=== PATIENT | female | born 1980 ===

== ENCOUNTER 2017-01-03 15:22 | Emergency (ER) | payer MEDICARE, MEDICAID ==
[2017-01-03 15:23] VITALS: BMI 10.8
[2017-01-03 15:29] VITALS: BP 110/78; PULSE 98; RESP 18; TEMP 97.5; O2SAT 100
--- NOTE | 2017-01-03 15:48 | C.PDOC ---
History Of Present Illness 36 y/o F c PMHx gastric ulcer p/w dyspepsia since last night. Patient states that she recently underwent endoscopy for her symptoms and was found to have a gastric ulcer. She has been on omeprazole. She states that she had [place] food last night and it made her have worsening symptoms. She states that she needs to know what she can and can not eat and that it must be laid out for her because she has bipolar disorder. She denies fever, vomiting. She has yet to follow up with GI for H. pylori results. Time Seen by Provider: 01/03/17 15:42 Chief Complaint (Nursing): Abdominal Pain Past Medical History Vital Signs: Last Vital Signs Temp 97.5 F L 01/03/17 15:26 Pulse 98 H 01/03/17 15:26 Resp 18 01/03/17 15:26 BP 110/78 01/03/17 15:26 Pulse Ox 100 01/03/17 15:58 - Medical History PMH: Anxiety, Asthma, Bipolar Disorder, Depression, Gastrointestinal Ulcer, HTN , Hypothyroidism, Migraine, Schizophrenia, Seizures - [facility] Procedures INJECT/INFUSE ELECTROLYT (11/24/12) INJECT/INFUSE NEC (03/13/13) NEBULIZER THERAPY (11/30/12) Family History: States: Unknown Family Hx - Social History Hx Tobacco Use: Yes Hx Alcohol Use: No Hx Substance Use: No - Immunization History Hx Tetanus Toxoid Vaccination: No Hx Influenza Vaccination: No Hx Pneumococcal Vaccination: No Review Of Systems Except As Marked, All Systems Reviewed And Found Negative. Constitutional: Negative for: Fever Cardiovascular: Negative for: Chest Pain Physical Exam - Physical Exam Additional Physical Exam Comments: Constitutional: No acute distress. Head: Normocephalic. Atraumatic. Eyes: PERRL. ENT: Moist mucous membranes. Neck: Supple. Cardiovascular: Regular rate. Radial pulses 2+ bilaterally. Chest: No tenderness. Respiratory: Clear to auscultation bilaterally. GI: Soft. Nontender. Nondistended. Back: No CVA tenderness. Musculoskeletal: No tenderness or swelling of extremities. Skin: No rash. Neurologic: Alert, no focal deficit. ED Course And Treatment O2 Sat by Pulse Oximetry: 100 Medical Decision Making Medical Decision Making: Discussed appropriate diet with patient and gave information on diet. Encouraged f/u with GI to find out if H pylori positive. Also informed patient that some [employer] have per diem/systems requirements planner on staff and that perhaps she can consult with them while shopping for groceries. Disposition - Disposition Disposition: HOME/ ROUTINE Disposition Time: 15:56 Condition: STABLE Instructions: Diet for Ulcers and Gastritis (ED) Forms: [facility] (Kiswahili) - Clinical Impression Clinical Impression: Gastric ulcer
== END 2017-01-03 16:05 | disposition home or self-care (01) ==
LOC: C.ER 15:22
DX: K25.9 Gastric ulcer, unspecified as acute or chronic, without hemorrhage or perforation (principal)

== ENCOUNTER 2017-03-11 13:45 | Emergency (ER) | payer MEDICARE, MEDICAID ==
[2017-03-11] MEDS ORDERED: Naproxen 550 mg Tab PO STA (14:12)
[2017-03-11 14:13] VITALS: BMI 32.2
[2017-03-11 14:14] VITALS: BP 124/72; RESP 18; TEMP 98.1
--- NOTE | 2017-03-11 14:14 | C.PDOC ---
History Of Present Illness Patient presents to ED c/o sore throat x approx 3 weeks. She states she was already given several antibiotics as well as viscous lidocaine. Patient also states she was given an ENT referral, but she lost it. She denies fever, SOB, cough, rash. Time Seen by Provider: 03/11/17 13:55 Chief Complaint (Nursing): ENT Problem History Per: Patient History/Exam Limitations: None Onset/Duration Of Symptoms: Persistent Current Symptoms Are (Timing): Still Present Symptoms Have Been: Continuous Severity: Mild Past Medical History Reviewed: Historical Data, Nursing Documentation, Vital Signs Vital Signs: Last Vital Signs Temp 98.1 F 03/11/17 14:11 Pulse 85 03/11/17 14:31 Resp 18 03/11/17 14:31 BP 124/72 03/11/17 14:11 Pulse Ox 98 03/11/17 14:31 - Medical History PMH: Anxiety, Asthma, Bipolar Disorder, Depression, Gastrointestinal Ulcer, HTN , Hypothyroidism, Migraine, Schizophrenia, Seizures - [facility] Procedures INJECT/INFUSE ELECTROLYT (11/24/12) INJECT/INFUSE NEC (03/13/13) NEBULIZER THERAPY (11/30/12) Family History: States: No Known Family Hx - Social History Hx Tobacco Use: Yes Hx Alcohol Use: No Hx Substance Use: No - Immunization History Hx Tetanus Toxoid Vaccination: No Hx Influenza Vaccination: No Hx Pneumococcal Vaccination: No Review Of Systems Except As Marked, All Systems Reviewed And Found Negative. Constitutional: Negative for: Fever, Chills ENT: Positive for: Throat Pain. Negative for: Ear Pain, Nose Congestion Cardiovascular: Negative for: Chest Pain Respiratory: Negative for: Cough, Shortness of Breath Musculoskeletal: Negative for: Neck Pain Skin: Negative for: Rash Physical Exam - Physical Exam Appears: Well, Non-toxic, No Acute Distress Skin: Warm, Dry, No Rash Ear(s): Bilateral: Normal Nose: Normal Oral Mucosa: Moist Throat: Normal, No Erythema, No Exudate, No Drooling Neck: Normal, Normal ROM, Supple Cardiovascular: Rhythm Regular Respiratory: Normal Breath Sounds, No Rales, No Rhonchi, No Wheezing Neurological/Psych: Oriented x3 ED Course And Treatment O2 Sat by Pulse Oximetry: 98 (RA) Pulse Ox Interpretation: Normal Progress Note: Patient given PO naprosyn in ED, and Rx for same. Patient given follow up info for Dr. Cook, and she was instructed to follow up with him within 1 week. She understands she should return to ED if symptoms worsen. Disposition Counseled Patient/Family Regarding: Diagnosis, Need For Followup, Rx Given - Disposition Referrals: Kaylan Hansen MD [Primary Care Provider] - Angel Cook MD [Staff Provider] - Disposition: HOME/ ROUTINE Disposition Time: 14:15 Condition: STABLE Additional Instructions: FOLLOW UP WITH ENT WITHIN 1 WEEK USE MEDICATION NEEDED FOR PAIN RETURN TO ER IF SYMPTOMS WORSEN Prescriptions: Naproxen 375 mg PO BID PRN #20 tablet PRN Reason: pain Forms: [facility] (Maltese), General Discharge Instructions Print Language: SLOVENIAN - Clinical Impression Clinical Impression: Sore throat
[2017-03-11] MEDS ORDERED: Naproxen 550 mg Tab PO ONE (14:20)
[2017-03-11 14:34] VITALS: PULSE 85; O2SAT 98
== END 2017-03-11 14:40 | disposition home or self-care (01) ==
LOC: C.ER 13:45 → SUPCPDRO 13:45 → C.ER 14:40
DX: J02.9 Acute pharyngitis, unspecified (principal)

== ENCOUNTER 2017-03-19 16:28 | Emergency (ER) | payer MEDICARE, MEDICAID ==
[2017-03-19 16:28] VITALS: BMI 10.8
[2017-03-19 16:38] VITALS: TEMP 97.9; O2SAT 100
--- NOTE | 2017-03-19 17:28 | C.PDOC ---
History Of Present Illness Patient is a 37 y/o female who presents to the ED with a complaint of CP since 1 day ago. Patient reports pain is able to be digitally reproduced on sternum. Patient has had many prior evaluations for CP in ED. No other physical complaints at this time. Time Seen by Provider: 03/19/17 17:22 Chief Complaint (Nursing): Chest Pain History Per: Patient History/Exam Limitations: no limitations Onset/Duration Of Symptoms: Days (1 day ago) Current Symptoms Are (Timing): Still Present Recent travel outside of the [place]: No Past Medical History Reviewed: Historical Data, Nursing Documentation, Vital Signs Vital Signs: Last Vital Signs Temp 97.9 F 03/19/17 16:34 Pulse 83 03/19/17 17:33 Resp 18 03/19/17 17:33 BP 108/67 03/19/17 17:33 Pulse Ox 100 03/19/17 17:33 - Medical History PMH: Anxiety, Asthma, Bipolar Disorder, Depression, Gastrointestinal Ulcer, HTN , Hypothyroidism, Migraine, Schizophrenia, Seizures Surgical History: No Surg Hx - [facility] Procedures INJECT/INFUSE ELECTROLYT (11/24/12) INJECT/INFUSE NEC (03/13/13) NEBULIZER THERAPY (11/30/12) Family History: States: Unknown Family Hx - Social History Hx Tobacco Use: Yes Hx Alcohol Use: No Hx Substance Use: No - Immunization History Hx Tetanus Toxoid Vaccination: No Hx Influenza Vaccination: Yes Hx Pneumococcal Vaccination: No Review Of Systems Cardiovascular: Positive for: Chest Pain Physical Exam - Physical Exam Appears: Non-toxic, Combative (argumentative; yelling), Other (bizzare) Skin: Normal Color, Warm, Dry Head: Atraumatic, Normacephalic Oral Mucosa: Moist ED Course And Treatment ECG: Interpreted By Nv ECG Rhythm: Sinus Rhythm ECG Interpretation: Normal Rate From EC O2 Sat by Pulse Oximetry: 100 Pulse Ox Interpretation: Normal Medical Decision Making Medical Decision Making: digitally positionally reproducable chest discomfort b/l parasternal anxious, yelling, hystrionia, c/w h/o Bipolar normal EKg NSAIDS/Ice therapy educated. Disposition Doctor Will See Patient In The: Office Counseled Patient/Family Regarding: Studies Performed, Diagnosis - Disposition Referrals: Marni Hansen MD [Medical Doctor] - Disposition: HOME/ ROUTINE Disposition Time: 17:28 Condition: GOOD Additional Instructions: continue motrin or tylenol for chest wall discomfort. ice packs to chest wall 1/2 hour per hour as needed no heavy lifting for 1 week Follow-up with your PMD as needed. Instructions: Costochondritis (ED) Forms: [facility] (Chinese) - Clinical Impression Clinical Impression: Anxiety disorder, Chest discomfort - Scribe Statement The provider has reviewed the documentation as recorded by the Scribe Gloria Bray All medical record entries made by the Scribe were at my direction and personally dictated by me. I have reviewed the chart and agree that the record accurately reflects my personal performance of the history, physical exam, medical decision making, and the department course for this patient. I have also personally directed, reviewed, and agree with the discharge instructions and disposition.
[2017-03-19 17:34] VITALS: BP 108/67; PULSE 83; RESP 18
--- NOTE | 2017-03-20 19:13 | CARD ---
APPROVED REPORT EKG Measurement Heart [id number] <Conclusion> Normal sinus rhythm Low voltage QRS Borderline ECG
== END 2017-03-19 17:49 | disposition home or self-care (01) ==
LOC: C.ER 16:28
DX: F41.9 Anxiety disorder, unspecified (principal); R07.89 Other chest pain; I10 Essential (primary) hypertension; Z87.891 Personal history of nicotine dependence

== ENCOUNTER 2017-03-28 16:30 | Emergency (ER) | payer MEDICARE, MEDICAID ==
[2017-03-28 16:30] VITALS: BMI 10.8
[2017-03-28 16:37] VITALS: TEMP 98
--- NOTE | 2017-03-28 17:00 | C.PDOC ---
History Of Present Illness 37 y/o female c/o dental pain for the past few weeks. Patient has an appointment to see her dentist and reports misplacing her meds. Denies fever, chills, nausea, or vomiting. No trauma to the mouth area or facial numbness. Time Seen by Provider: 03/28/17 16:38 Chief Complaint (Nursing): Dental Pain History Per: Patient History/Exam Limitations: no limitations Onset/Duration Of Symptoms: Days Current Symptoms Are (Timing): Still Present Severity: Mild Quality: Positive for: "Pain" Recent travel outside of the [place]: No Additional History Per: Patient Past Medical History Reviewed: Historical Data, Nursing Documentation, Vital Signs Vital Signs: Last Vital Signs Temp 98.0 F 03/28/17 16:35 Pulse 102 H 03/28/17 16:35 Resp 16 03/28/17 16:35 BP 106/70 03/28/17 16:35 Pulse Ox 100 03/28/17 17:07 - Medical History PMH: Anxiety, Asthma, Bipolar Disorder, Depression, Gastrointestinal Ulcer, HTN , Hypothyroidism, Migraine, Schizophrenia, Seizures - [facility] Procedures INJECT/INFUSE ELECTROLYT (11/24/12) INJECT/INFUSE NEC (03/13/13) NEBULIZER THERAPY (11/30/12) Family History: States: Unknown Family Hx - Social History Hx Tobacco Use: Yes Hx Alcohol Use: No Hx Substance Use: No - Immunization History Hx Tetanus Toxoid Vaccination: No Hx Influenza Vaccination: Yes Hx Pneumococcal Vaccination: No Review Of Systems Except As Marked, All Systems Reviewed And Found Negative. Constitutional: Negative for: Fever, Chills, Other (Trauma) ENT: Positive for: Mouth Pain (Dental pain) Gastrointestinal: Negative for: Nausea, Vomiting Neurological: Negative for: Numbness Physical Exam - Physical Exam Appears: Non-toxic, No Acute Distress Skin: Warm, Dry Head: Atraumatic, Normacephalic Oral Mucosa: Moist Teeth: Caries (Dental caries to the left upper molar), No Loose, No Avulsed Gingiva: No Erythema, No Bleeding, No Abscess Throat: Normal, No Erythema Neurological/Psych: Oriented x3 ED Course And Treatment O2 Sat by Pulse Oximetry: 100 (RA) Pulse Ox Interpretation: Normal Medical Decision Making Medical Decision Making: Plans: * Cleocin On reassessment, patient is resting comfortably, and is in no acute distress. Patient was instructed to follow up with physician/clinic in 1-2 days for further evaluation. Disposition - Disposition Referrals: [facility] [Outside] [facility] [Outside] Disposition: HOME/ ROUTINE Disposition Time: 17:00 Condition: STABLE Additional Instructions: please see dentist. return to er with worsening symptoms or concerns. Prescriptions: Clindamycin [Cleocin] 300 mg PO Q8 #21 cap Instructions: Dental Caries (ED), Toothache (ED) Forms: [facility] (Sami) - Clinical Impression Clinical Impression: Dental caries - Scribe Statement The provider has reviewed the documentation as recorded by the Scribe Jailene sapp All medical record entries made by the Scribe were at my direction and personally dictated by me. I have reviewed the chart and agree that the record accurately reflects my personal performance of the history, physical exam, medical decision making, and the department course for this patient. I have also personally directed, reviewed, and agree with the discharge instructions and disposition.
[2017-03-28 17:22] VITALS: BP 104/62; PULSE 90; RESP 20; O2SAT 98
== END 2017-03-28 17:31 | disposition home or self-care (01) ==
LOC: C.ER 16:30
DX: K02.9 Dental caries, unspecified (principal)

== ENCOUNTER 2017-05-17 16:59 | Emergency (ER) | payer MEDICARE, MEDICAID ==
[2017-05-17 17:00] VITALS: BMI 10.8
[2017-05-17 17:10] VITALS: BP 106/74; PULSE 99; RESP 18; TEMP 97.6; O2SAT 99
--- NOTE | 2017-05-17 17:49 | C.PDOC ---
History Of Present Illness 37 year old female with a Hx of bipolar disorder and migraines presents to the ER with a complaint of left lower abdominal discomfort for the past week. Patient has a recent Hx of kidney stones and a questionable UTI, she states her PMD gave her something of for bladder spasms but did not start her on any antibiotics. Patient also notes having cough and URI symptoms but denies fever, chills, neck pain, current headache, or chest pain. Time Seen by Provider: 05/17/17 17:11 Chief Complaint (Nursing): Abdominal Pain History Per: Patient History/Exam Limitations: no limitations Onset/Duration Of Symptoms: Days Current Symptoms Are (Timing): Still Present Location Of Pain/Discomfort: LLQ Radiation Of Pain To:: None Quality Of Discomfort: Unable To Describe Associated Symptoms: denies: Fever, Chills, Chest Pain, Other (Cough, headache) Exacerbating Factors: None Alleviating Factors: None Recent travel outside of the [place]: No Past Medical History Reviewed: Historical Data, Nursing Documentation, Vital Signs Vital Signs: Last Vital Signs Temp 97.6 F 05/17/17 17:08 Pulse 99 H 05/17/17 17:08 Resp 18 05/17/17 17:08 BP 106/74 05/17/17 17:08 Pulse Ox 99 05/17/17 18:13 - Medical History PMH: Anxiety, Asthma, Bipolar Disorder, COPD, Depression, Gastrointestinal Ulcer , HTN, Hypothyroidism, Migraine, Schizophrenia, Seizures - [facility] Procedures INJECT/INFUSE ELECTROLYT (11/24/12) INJECT/INFUSE NEC (03/13/13) NEBULIZER THERAPY (11/30/12) Family History: States: Unknown Family Hx - Social History Hx Tobacco Use: Yes Hx Alcohol Use: No Hx Substance Use: No - Immunization History Hx Tetanus Toxoid Vaccination: No Hx Influenza Vaccination: Yes Hx Pneumococcal Vaccination: No Review Of Systems Constitutional: Negative for: Fever, Chills ENT: Positive for: Nose Discharge, Nose Congestion Cardiovascular: Negative for: Chest Pain Respiratory: Positive for: Cough Gastrointestinal: Positive for: Abdominal Pain Musculoskeletal: Negative for: Neck Pain Neurological: Negative for: Headache Physical Exam - Physical Exam Appears: Non-toxic, No Acute Distress Skin: Normal Color, Warm, Dry Head: Atraumatic, Normacephalic Eye(s): bilateral: Normal Inspection Oral Mucosa: Moist Neck: Normal, Supple Chest: Symmetrical, No Tenderness Cardiovascular: Rhythm Regular Respiratory: Normal Breath Sounds, No Rales, No Rhonchi, No Wheezing Gastrointestinal/Abdominal: Soft, No Tenderness, No Distention Back: No CVA Tenderness Neurological/Psych: Oriented x3, Normal Speech ED Course And Treatment O2 Sat by Pulse Oximetry: 99 (Room air) Pulse Ox Interpretation: Normal Medical Decision Making Medical Decision Making: Plan: Rue out UTI vs hematuria. Abdominal x-ray ordered. Disposition Counseled Patient/Family Regarding: Studies Performed, Diagnosis, Need For Followup, Rx Given - Disposition Disposition: HOME/ ROUTINE Disposition Time: 18:23 Condition: STABLE Prescriptions: Peg Electrolyte Lavage Solut [Golytely] 4,000 ml PO ONCE #1 bottle Phosphate Enema [Fleet Enema 135 Ml] 135 ml RC DAILY #2 nma Forms: [facility] (Wolof), General Discharge Instructions - POA Present On Arrival: None - Clinical Impression Clinical Impression: Constipation - Scribe Statement The provider has reviewed the documentation as recorded by the Scribsathya Fam All medical record entries made by the Pradipibsathya were at my direction and personally dictated by me. I have reviewed the chart and agree that the record accurately reflects my personal performance of the history, physical exam, medical decision making, and the department course for this patient. I have also personally directed, reviewed, and agree with the discharge instructions and disposition.
[2017-05-17 17:56] LABS: HCG,QUALITATIVE URINE NEGATIVE (NEGATIVE)
[2017-05-17 18:05] LABS: SQUAMOUS EPITHIAL 7 /hpf (0-5); URINE BACTERIA RARE (<OCC); URINE BILIRUBIN NEGATIVE (NEGATIVE); URINE BLOOD NEGATIVE (NEGATIVE); URINE CLARITY Hazy (Clear); URINE GLUCOSE (UA) NORMAL (Normal); URINE LEUKOCYTE ESTERASE NEG Leu/uL (Negative); URINE NITRATE NEGATIVE (NEGATIVE); URINE PROTEIN NEGATIVE (NEGATIVE); URINE UROBILINOGEN NORMAL mg/dL (0.2-1.0)
[2017-05-17 18:06] LABS: URINE COLOR GREEN (YELLOW)
--- NOTE | 2017-05-17 18:17 | RAD ---
HISTORY: abd pain COMPARISON: Comparison is made with the previous CT of the abdomen dated 12/13/2016 FINDINGS: BOWEL: Mild constipation is noted. No evidence of bowel obstruction or free air. BONES: Normal. OTHER FINDINGS: None. IMPRESSION: [id number] constipation.
== END 2017-05-17 18:40 | disposition home or self-care (01) ==
LOC: C.ER 16:59
DX: K59.00 Constipation, unspecified (principal)

== ENCOUNTER 2017-07-28 16:14 | Emergency (ER) | payer MEDICARE, MEDICAID ==
[2017-07-28 16:14] VITALS: BMI 10.8
[2017-07-28 16:21] VITALS: RESP 18
[2017-07-28] MEDS ORDERED: Lactated Ringer's 1,000 ML IVB STA (17:01)
[2017-07-28 17:19] LABS: BASO % 0.3 % (0.0-2.0); EOS # 0.2 K/uL (0.0-0.7); EOS % 2.1 % (0.0-4.0); HEMOGLOBIN 14.9 g/dL (11.0-16.0); LYMPH % 27.1 % (20.0-40.0); MEAN CELL VOLUME 99.3 fL (81.0-99.0); MEAN CORPUSCULAR HEMOGLOBIN 33.2 pg (27.0-31.0); MEAN CORPUSCULAR HGB CONC 33.4 g/dL (33.0-37.0); MEAN PLATELET VOLUME 8.7 fL (7.2-11.7); MONO # 0.6 K/uL (0.0-0.8); MONO % 5.6 % (0.0-10.0); NEUT # 7.1 K/uL (1.8-7.0); NEUT % 64.9 % (50.0-75.0); NRBC % 0.1 % (0.0-2.0); RBC 4.47 Mil/uL (3.80-5.20); RED CELL DISTRIBUTION WIDTH 13.2 % (11.5-14.5)
[2017-07-28] MEDS ORDERED: Lactated Ringer's 1,000 ML ONE (17:28)
[2017-07-28 17:29] LABS: HCG,QUALITATIVE URINE NEGATIVE (NEGATIVE)
[2017-07-28 17:32] LABS: ALB/GLOB RATIO 1.2 (1.0-2.1); ALBUMIN 4.1 g/dL (3.5-5.0); ALT/SGPT 25 U/L (9-52); AST/SGOT 22 U/L (14-36); BLOOD UREA NITROGEN 15 mg/dL (7-17); CALCIUM 8.5 mg/dl (8.6-10.4); GFR AFRICAN-AMERICAN > 60; GFR NON-AFRICAN AMERICAN > 60; LIPASE 152 U/L (23-300); SQUAMOUS EPITHIAL 1 /hpf (0-5); URINE AMORPHOUS SEDIMENT FEW /ul (<OCC); URINE BACTERIA RARE (<OCC); URINE BILIRUBIN NEGATIVE (NEGATIVE); URINE BLOOD NEGATIVE (NEGATIVE); URINE CLARITY Hazy (Clear); URINE COLOR Yellow (YELLOW); URINE GLUCOSE (UA) NORMAL (Normal); URINE LEUKOCYTE ESTERASE NEG Leu/uL (Negative); URINE PROTEIN NEGATIVE (NEGATIVE); URINE UROBILINOGEN NORMAL mg/dL (0.2-1.0)
--- NOTE | 2017-07-28 20:11 | CT ---
EXAM: CT Abdomen and Pelvis Without Intravenous Contrast EXAM DATE/TIME: Exam ordered 07/28/2017 5:54 PM CLINICAL HISTORY: 37 years old, female; Pain; Abdominal pain; Flank; Left lower quadrant (llq); Additional info: Llq pain, urinary symptoms TECHNIQUE: Axial computed tomography images of the abdomen and pelvis without intravenous contrast. All CT scans at this facility use one or more dose reduction techniques, viz.: automated exposure control; ma/kV adjustment per patient size (including targeted exams where dose is matched to indication; i.e. head); or iterative reconstruction technique. Coronal and sagittal reformatted images were created and reviewed. COMPARISON: CT - ABD PELVIS IV CONTRAST ONLY 2015-12-14 15:47 FINDINGS: Lower thorax: No acute findings. ABDOMEN: Liver: Unremarkable. Gallbladder and bile ducts: Unremarkable. No calcified stones. No ductal dilation. Pancreas: Unremarkable. No ductal dilation. Spleen: Unremarkable. No splenomegaly. Adrenals: Unremarkable. No mass. Kidneys and ureters: A 2 mm calcification is seen in the lower pole of the right kidney. No hydronephrosis. Stomach and bowel: Unremarkable. No obstruction. No mucosal thickening. Appendix: No findings to suggest acute appendicitis. PELVIS: Bladder: Unremarkable. No stones. Reproductive: Unremarkable as visualized. ABDOMEN and PELVIS: Intraperitoneal space: Unremarkable. No free air. No significant fluid collection. Bones/joints: No acute fracture. No dislocation. Soft tissues: Unremarkable. Vasculature: Unremarkable. No abdominal aortic aneurysm. Lymph nodes: Unremarkable. No enlarged lymph nodes. IMPRESSION: 1. 2 mm nonobstructing calcification in the lower pole of the right kidney. There no calcifications noted in the left kidney or ureter. No bladder calcification seen. No hydronephrosis in either kidney.
--- NOTE | 2017-07-28 20:19 | C.PDOC ---
Time Seen by Provider: 07/28/17 16:44 Chief Complaint (Nursing): Abdominal Pain History Per: Patient Onset/Duration Of Symptoms: Days (about 1 month), Waxing/Waning Current Symptoms Are (Timing): Still Present Severity: Moderate Location Of Pain/Discomfort: LLQ Associated Symptoms: Nausea, Constipation (?), Urinary Symptoms Alleviating Factors: None Additional History Per: Prior Records Abnormal Vaginal Bleeding: No Past Medical History Reviewed: Historical Data, Nursing Documentation, Vital Signs Vital Signs: Last Vital Signs Temp 97.3 F L 07/28/17 16:15 Pulse 116 H 07/28/17 16:15 Resp 18 07/28/17 16:15 BP 111/75 07/28/17 16:15 Pulse Ox 99 07/28/17 16:15 - Medical History PMH: Anxiety, Asthma, Bipolar Disorder, COPD, Depression, Gastrointestinal Ulcer , HTN, Hypothyroidism, Migraine, Schizophrenia, Seizures - [facility] Procedures INJECT/INFUSE ELECTROLYT (11/24/12) INJECT/INFUSE NEC (03/13/13) NEBULIZER THERAPY (11/30/12) Family History: States: Unknown Family Hx - Social History Hx Tobacco Use: Yes Hx Alcohol Use: No Hx Substance Use: No - Immunization History Hx Tetanus Toxoid Vaccination: No Hx Influenza Vaccination: Yes Hx Pneumococcal Vaccination: No Review Of Systems Except As Marked, All Systems Reviewed And Found Negative. Constitutional: Negative for: Fever, Weakness Cardiovascular: Negative for: Chest Pain Respiratory: Negative for: Shortness of Breath Gastrointestinal: Positive for: Abdominal Pain. Negative for: Diarrhea Genitourinary: Positive for: Dysuria. Negative for: Vaginal Discharge Musculoskeletal: Negative for: Neck Pain, Back Pain Skin: Negative for: Rash Neurological: Negative for: Weakness, Numbness Physical Exam - Physical Exam Appears: Non-toxic, No Acute Distress Skin: Normal Color, Warm, Dry Head: Atraumatic, Normacephalic Eye(s): bilateral: PERRL, EOMI Neck: Normal ROM, Supple Cardiovascular: Rhythm Regular Respiratory: Normal Breath Sounds, No Accessory Muscle Use Gastrointestinal/Abdominal: Soft, Tenderness (LLQ), No Guarding, No Rebound Back: No CVA Tenderness Pelvic: Normal Speculum Exam, No Vaginal Bleeding, No Vaginal Discharge, No Cervical Motion Tenderness, No Adnexal Tenderness Extremity: Normal ROM Neurological/Psych: Oriented x3, Normal Motor, Normal Sensation ED Course And Treatment - Laboratory Results Result Diagrams: 07/28/17 17:15 07/28/17 17:15 Lab Interpretation: No Acute Changes Urine POC: Negative O2 Sat by Pulse Oximetry: 99 Pulse Ox Interpretation: Normal - CT Scan/US CT abd/pelv Other Rad Studies (CT/US): Read By Radiologist, Radiology Report Reviewed CT/US Interpretation: IMPRESSION: 1. 2 mm nonobstructing calcification in the lower pole of the right kidney. There no calcifications noted in the left kidney or ureter. No bladder. calcification seen. No hydronephrosis in either kidney. Progress - Interventions Interventions:: Observation, Intravenous fluid - Medications Administered Intravenous: H-2 edwige, NSAID - Data Reviewed Data Reviewed: Lab, Diagnostic imaging, Old records - Patient Status Patient status: Mostly improved - Continuity of Care Discussed patient case with:: Patient, ED Nurse - Patient Plan Patient Plan: Discharge, F/U with PCP Disposition Counseled Patient/Family Regarding: Studies Performed, Diagnosis, Need For Followup, Rx Given - Disposition Disposition: HOME/ ROUTINE Disposition Time: 20:21 Condition: IMPROVED Additional Instructions: Drink plenty of fluids. Follow up with your doctor for further evaluation and treatment. Return to the ER if you develop fever, vomiting, vaginal discharge, worsening of symptoms or if you have any other concerns. Prescriptions: Polyethylene Glycol 3350 [Miralax] 17 gm PO DAILY #7 packet Instructions: Constipation, Adult (DC) Forms: [facility] (Belarusian), General Discharge Instructions - Clinical Impression Clinical Impression: Abdominal pain
[2017-07-28 20:37] VITALS: BP 126/69; PULSE 68; TEMP 98; O2SAT 100
== END 2017-07-28 20:37 | disposition home or self-care (01) ==
LOC: C.ER 16:14
DX: R10.32 Left lower quadrant pain (principal); F20.9 Schizophrenia, unspecified; I10 Essential (primary) hypertension; E03.9 Hypothyroidism, unspecified; Z72.0 Tobacco use
CPT/HCPCS: 74176; 80053; 81001; 83690; 84703; 85025; 87086; 87491; 87591; 96374; 96375; 99284; J1885; J7120

== ENCOUNTER 2017-10-11 16:59 | Emergency (ER) | payer MEDICARE, MEDICAID ==
[2017-10-11 16:59] VITALS: BMI 31.9
[2017-10-11] MEDS ORDERED: Sodium Chloride 0.9% 1,000 ML IV ONE (17:22)
--- NOTE | 2017-10-11 17:27 | C.PDOC ---
History Of Present Illness 11-geng[age]-map female with PMHx of bipolar disorder, schizophrenia, anxiety, epilepsy and herniated disc presents to ED with complaints of headache, chest pain and congestion that began yesterday. Patient states she is "feeling dehydrated." Patient has had multiple ER visits. Denies injury, abdominal pain, vomiting, diarrhea, or urinary symptoms. Time Seen by Provider: 10/11/17 17:07 Chief Complaint (Nursing): Chest Pain History Per: Patient History/Exam Limitations: no limitations Onset/Duration Of Symptoms: Days (1) Current Symptoms Are (Timing): Still Present Associated Symptoms: denies: Nausea, Dyspnea, Diaphoresis Modifying Factors: None Exacerbating Factors: None Alleviating Factors: None Recent travel outside of the [place]: No Past Medical History Reviewed: Historical Data, Nursing Documentation, Vital Signs - Medical History PMH: Anxiety, Asthma, Bipolar Disorder, COPD, Depression, Gastrointestinal Ulcer , Hypothyroidism, Migraine, Schizophrenia, Seizures - [facility] Procedures INJECT/INFUSE ELECTROLYT (11/24/12) INJECT/INFUSE NEC (03/13/13) NEBULIZER THERAPY (11/30/12) Family History: States: Unknown Family Hx - Social History Hx Tobacco Use: Yes Hx Alcohol Use: No Hx Substance Use: No - Immunization History Hx Tetanus Toxoid Vaccination: No Hx Influenza Vaccination: Yes Hx Pneumococcal Vaccination: No Review Of Systems Constitutional: Negative for: Fever, Chills ENT: Positive for: Nose Congestion Cardiovascular: Positive for: Chest Pain Gastrointestinal: Negative for: Nausea, Vomiting, Abdominal Pain, Diarrhea Genitourinary: Negative for: Dysuria Skin: Negative for: Rash Neurological: Positive for: Headache. Negative for: Weakness, Numbness Psych: Negative for: Suicidal ideation Physical Exam - Physical Exam Appears: Non-toxic, No Acute Distress Skin: Warm, Dry Head: Atraumatic, Normacephalic Eye(s): bilateral: Normal Inspection, PERRL, EOMI Oral Mucosa: Moist Throat: Erythema (Mild), No Exudate, No Drooling Neck: Supple Chest: Symmetrical, No Tenderness Cardiovascular: Rhythm Regular, No Murmur Respiratory: Normal Breath Sounds, No Decreased Breath Sounds, No Rales, No Rhonchi, No Wheezing Gastrointestinal/Abdominal: Soft, No Tenderness, No Distention Extremity: Normal ROM, No Pedal Edema Extremity: Bilateral: Normal Color And Temperature, Normal ROM Neurological/Psych: Oriented x3, Normal Speech, Normal Cognition Gait: Steady ED Course And Treatment - Laboratory Results Result Diagrams: 10/11/17 17:35 10/11/17 17:35 - Other Rad CXR X-Ray: Viewed By Me, Read By Radiologist Interpretation: PROCEDURE: CHEST RADIOGRAPH, 1 VIEW. HISTORY: SOB. COMPARISON: Chest radiographs 01/20/2017. FINDINGS: LUNGS: Clear. PLEURA: No pneumothorax or pleural fluid seen. CARDIOVASCULAR: Normal. OSSEOUS STRUCTURES: No significant abnormalities. VISUALIZED UPPER ABDOMEN: Normal. OTHER FINDINGS: None. IMPRESSION: No interval acute cardiopulmonary disease appreciated. Medical Decision Making Medical Decision Making: Administered IV fluids and Tylenol. Ordered EKG, blood work, CXR, and urinalysis. EKG: -- Normal sinus rhythm at 82bpm -- No ST elevations or depressions Disposition Counseled Patient/Family Regarding: Studies Performed, Diagnosis - Disposition Referrals: Kaylan Hansen MD [Staff Provider] - Disposition: HOME/ ROUTINE Disposition Time: 18:27 Condition: STABLE Prescriptions: Fexofenadine HCl [JudyNf] 180 mg PO DAILY #30 tab Instructions: Headache, Adult Forms: [facility] (Malawian), General Discharge Instructions - POA Present On Arrival: None - Clinical Impression Clinical Impression: Seasonal allergies, Head ache - Scribe Statement The provider has reviewed the documentation as recorded by the Scribsathya Kinsey All medical record entries made by the Scribe were at my direction and personally dictated by me. I have reviewed the chart and agree that the record accurately reflects my personal performance of the history, physical exam, medical decision making, and the department course for this patient. I have also personally directed, reviewed, and agree with the discharge instructions and disposition.
[2017-10-11] MEDS ORDERED: Sodium Chloride 0.9% 1,000 ML ONE (17:29)
[2017-10-11 17:38] LABS: BASO # 0.1 K/uL (0.0-0.2); EOS # 0.2 K/uL (0.0-0.7); EOS % 1.5 % (0.0-4.0); HEMOGLOBIN 15.1 g/dL (11.0-16.0); LYMPH # 2.9 K/uL (1.0-4.3); LYMPH % 25.8 % (20.0-40.0); MEAN CELL VOLUME 101.7 fL (81.0-99.0); MEAN CORPUSCULAR HGB CONC 34.4 g/dL (33.0-37.0); MEAN PLATELET VOLUME 9.2 fL (7.2-11.7); MONO # 0.5 K/uL (0.0-0.8); MONO % 4.3 % (0.0-10.0); NEUT # 7.7 K/uL (1.8-7.0); NEUT % 67.4 % (50.0-75.0); RBC 4.31 Mil/uL (3.80-5.20); WHITE BLOOD COUNT 11.4 K/uL (4.8-10.8)
[2017-10-11 17:50] LABS: CALCIUM 9.1 mg/dl (8.6-10.4); GFR AFRICAN-AMERICAN > 60; GFR NON-AFRICAN AMERICAN > 60
[2017-10-11 17:54] LABS: BLOOD UREA NITROGEN 19 mg/dL (7-17)
--- NOTE | 2017-10-11 18:01 | RAD ---
PROCEDURE: CHEST RADIOGRAPH, 1 VIEW HISTORY: SOB COMPARISON: Chest radiographs 01/20/2017. FINDINGS: LUNGS: Clear. PLEURA: No pneumothorax or pleural fluid seen. CARDIOVASCULAR: Normal. OSSEOUS STRUCTURES: No significant abnormalities. VISUALIZED UPPER ABDOMEN: Normal. OTHER FINDINGS: None. IMPRESSION: No interval acute cardiopulmonary disease appreciated.
[2017-10-11 18:36] LABS: HCG,QUALITATIVE URINE NEGATIVE (NEGATIVE)
[2017-10-11 18:40] LABS: SQUAMOUS EPITHIAL 3 /hpf (0-5); URINE AMORPHOUS SEDIMENT FEW /ul (<OCC); URINE BACTERIA RARE (<OCC); URINE BILIRUBIN NEGATIVE (NEGATIVE); URINE BLOOD NEGATIVE (NEGATIVE); URINE CLARITY Hazy (Clear); URINE COLOR Yellow (YELLOW); URINE GLUCOSE (UA) NORMAL (Normal); URINE LEUKOCYTE ESTERASE NEG Leu/uL (Negative); URINE PROTEIN NEGATIVE (NEGATIVE); URINE UROBILINOGEN NORMAL mg/dL (0.2-1.0)
[2017-10-11 18:48] VITALS: BP 126/74; PULSE 78; RESP 18; TEMP 98; O2SAT 98
[2017-10-11 18:51] LABS: BENZODIAZEPINES, UR NEGATIVE (NEGATIVE); OPIATES, UR NEGATIVE (NEGATIVE); PHENCYCLIDINE, UR NEGATIVE (NEGATIVE)
[2017-10-11 18:52] LABS: BARBITURATES, UR POSITIVE (NEGATIVE)
== END 2017-10-11 18:48 | disposition home or self-care (01) ==
LOC: C.ER 16:59
DX: J30.2 Other seasonal allergic rhinitis (principal); R51 Headache; J44.9 Chronic obstructive pulmonary disease, unspecified; F17.210 Nicotine dependence, cigarettes, uncomplicated
CPT/HCPCS: 71045; 80048; 81001; 82948; 84703; 85025; 96360; 99284; G0480; J7040

== ENCOUNTER 2017-10-20 15:45 | Emergency (ER) | payer MEDICARE, MEDICAID ==
[2017-10-20 15:45] VITALS: BMI 31.9
[2017-10-20] MEDS ORDERED: Sodium Chloride 0.9% 1,000 ML IV STA (17:01)
[2017-10-20 17:02] LABS: HCG,QUALITATIVE URINE NEGATIVE (NEGATIVE)
[2017-10-20 17:03] LABS: SQUAMOUS EPITHIAL < 1 /hpf (0-5); URINE BILIRUBIN NEGATIVE (NEGATIVE); URINE BLOOD NEGATIVE (NEGATIVE); URINE CLARITY Clear (Clear); URINE COLOR Yellow (YELLOW); URINE GLUCOSE (UA) NORMAL (Normal); URINE LEUKOCYTE ESTERASE NEG Leu/uL (Negative); URINE PROTEIN NEGATIVE (NEGATIVE); URINE UROBILINOGEN NORMAL mg/dL (0.2-1.0)
[2017-10-20] MEDS ORDERED: Sodium Chloride 0.9% 1,000 ML ONE (17:17)
[2017-10-20 17:50] LABS: BASO # 0.1 K/uL (0.0-0.2); BASO % 0.5 % (0.0-2.0); EOS # 0.3 K/uL (0.0-0.7); EOS % 2.7 % (0.0-4.0); LYMPH # 3.3 K/uL (1.0-4.3); LYMPH % 33.5 % (20.0-40.0); MEAN CELL VOLUME 103.3 fL (81.0-99.0); MEAN CORPUSCULAR HEMOGLOBIN 35.4 pg (27.0-31.0); MEAN CORPUSCULAR HGB CONC 34.3 g/dL (33.0-37.0); MEAN PLATELET VOLUME 8.2 fL (7.2-11.7); MONO # 0.7 K/uL (0.0-0.8); MONO % 7.1 % (0.0-10.0); NEUT # 5.5 K/uL (1.8-7.0); NEUT % 56.2 % (50.0-75.0); NRBC % 0.2 % (0.0-2.0); RBC 3.96 Mil/uL (3.80-5.20); RED CELL DISTRIBUTION WIDTH 12.7 % (11.5-14.5); WHITE BLOOD COUNT 9.8 K/uL (4.8-10.8)
[2017-10-20 18:12] LABS: ALB/GLOB RATIO 1.1 (1.0-2.1); ALBUMIN 3.5 g/dL (3.5-5.0); ALT/SGPT 25 U/L (9-52); AST/SGOT 29 U/L (14-36); BLOOD UREA NITROGEN 17 mg/dL (7-17); CALCIUM 8.4 mg/dl (8.6-10.4); GFR AFRICAN-AMERICAN > 60; GFR NON-AFRICAN AMERICAN > 60; LIPASE 159 U/L (23-300)
[2017-10-20 19:45] VITALS: BP 106/71; PULSE 73; RESP 18; TEMP 98.5; O2SAT 100
--- NOTE | 2017-10-20 20:02 | C.PDOC ---
Time Seen by Provider: 10/20/17 16:28 Chief Complaint (Nursing): Abdominal Pain History Per: Patient Onset/Duration Of Symptoms: Days (chronic), Waxing/Waning Current Symptoms Are (Timing): Still Present Severity: Moderate Location Of Pain/Discomfort: Diffuse Quality Of Discomfort: Gas, Other (Bloating) Associated Symptoms: Nausea, Constipation Additional History Per: Prior Records Abnormal Vaginal Bleeding: No Past Medical History Reviewed: Historical Data, Nursing Documentation, Vital Signs Vital Signs: Last Vital Signs Temp 98.5 F 10/20/17 19:44 Pulse 73 10/20/17 19:44 Resp 18 10/20/17 19:44 BP 106/71 10/20/17 19:44 Pulse Ox 100 10/20/17 19:44 - Medical History PMH: Anxiety, Asthma, Bipolar Disorder, COPD, Depression, Gastrointestinal Ulcer , Hypothyroidism, Migraine, Schizophrenia, Seizures Surgical History: No Surg Hx - [facility] Procedures INJECT/INFUSE ELECTROLYT (11/24/12) INJECT/INFUSE NEC (03/13/13) NEBULIZER THERAPY (11/30/12) Family History: States: Unknown Family Hx - Social History Hx Tobacco Use: Yes Hx Alcohol Use: No Hx Substance Use: No - Immunization History Hx Tetanus Toxoid Vaccination: No Hx Influenza Vaccination: Yes Hx Pneumococcal Vaccination: No Review Of Systems Except As Marked, All Systems Reviewed And Found Negative. Constitutional: Negative for: Fever Cardiovascular: Negative for: Chest Pain Respiratory: Negative for: Shortness of Breath Gastrointestinal: Positive for: Abdominal Pain. Negative for: Vomiting, Melena , Hematochezia, Hematemesis Genitourinary: Negative for: Dysuria Musculoskeletal: Negative for: Neck Pain Skin: Negative for: Rash Neurological: Positive for: Headache (chronic). Negative for: Weakness, Numbness Physical Exam - Physical Exam Appears: Non-toxic, No Acute Distress Skin: Normal Color, Warm, Dry, No Rash Head: Atraumatic, Normacephalic Eye(s): bilateral: PERRL, EOMI Neck: Normal ROM, Supple Cardiovascular: Rhythm Regular Respiratory: Normal Breath Sounds, No Accessory Muscle Use Gastrointestinal/Abdominal: Soft, Tenderness (mild, nonspecific), No Guarding, No Rebound Back: No CVA Tenderness Extremity: Normal ROM Neurological/Psych: Oriented x3, Normal Motor, Normal Sensation ED Course And Treatment - Laboratory Results Result Diagrams: 10/20/17 17:47 10/20/17 17:47 Lab Interpretation: No Acute Changes Urine POC: Negative O2 Sat by Pulse Oximetry: 100 Pulse Ox Interpretation: Normal Progress Note: Pt feels better and wants to go home. She states that she was prescribed medications by her GI docotor, but has not picked them up from the pharmacy yet. I instructed her to pickle processor her meds and take them as prescribed. Reassessment Condition: Improved Progress - Interventions Interventions:: Observation, Intravenous fluid - Medications Administered Oral: H-2 edwige Intravenous: Antiemetic, NSAID - Data Reviewed Data Reviewed: Lab, Old records - Patient Status Patient status: Mostly improved - Continuity of Care Discussed patient case with:: Patient, ED Nurse - Patient Plan Patient Plan: Discharge, F/U with PCP, Continue present meds Disposition Counseled Patient/Family Regarding: Studies Performed, Diagnosis, Need For Followup, Smoking Cessation - Disposition Disposition: HOME/ ROUTINE Disposition Time: 20:04 Condition: IMPROVED Additional Instructions: Follow up with your doctor for further evaluation and treatment. Return to the ER if you develop fever, vomiting, worsening of symptoms or if you have any other concerns. Instructions: Constipation, Adult (DC) Forms: [facility] (Ukrainian) - Clinical Impression Clinical Impression: Chronic abdominal pain, Chronic headache
== END 2017-10-20 20:13 | disposition home or self-care (01) ==
LOC: C.ER 15:45
DX: G89.29 Other chronic pain (principal); R10.9 Unspecified abdominal pain; R51 Headache; F20.9 Schizophrenia, unspecified; Z72.0 Tobacco use; E03.9 Hypothyroidism, unspecified
CPT/HCPCS: 80053; 81001; 83690; 83735; 84703; 85025; 96361; 96374; 96375; 99285; J1885; J2765; J7030

== ENCOUNTER 2017-11-01 15:16 | Inpatient (IN) | payer MEDICARE, MEDICAID ==
[2017-11-01 15:16] VITALS: BMI 31.9
[2017-11-01 16:23] LABS: BASO % 0.3 % (0.0-2.0); EOS # 0.2 K/uL (0.0-0.7); EOS % 2.1 % (0.0-4.0); HEMOGLOBIN 14.2 g/dL (11.0-16.0); LYMPH # 3.1 K/uL (1.0-4.3); LYMPH % 33.5 % (20.0-40.0); MEAN CELL VOLUME 101.9 fL (81.0-99.0); MEAN CORPUSCULAR HEMOGLOBIN 34.4 pg (27.0-31.0); MEAN CORPUSCULAR HGB CONC 33.8 g/dL (33.0-37.0); MEAN PLATELET VOLUME 7.7 fL (7.2-11.7); MONO # 0.6 K/uL (0.0-0.8); MONO % 6.4 % (0.0-10.0); NEUT # 5.4 K/uL (1.8-7.0); NEUT % 57.7 % (50.0-75.0); NRBC % 0.1 % (0.0-2.0); RBC 4.11 Mil/uL (3.80-5.20); RED CELL DISTRIBUTION WIDTH 12.7 % (11.5-14.5); WHITE BLOOD COUNT 9.3 K/uL (4.8-10.8)
[2017-11-01 16:26] LABS: SQUAMOUS EPITHIAL 1 /hpf (0-5); URINE BILIRUBIN NEGATIVE (NEGATIVE); URINE BLOOD NEGATIVE (NEGATIVE); URINE CLARITY Clear (Clear); URINE COLOR Yellow (YELLOW); URINE GLUCOSE (UA) NORMAL (Normal); URINE LEUKOCYTE ESTERASE NEG Leu/uL (Negative); URINE PROTEIN NEGATIVE (NEGATIVE); URINE UROBILINOGEN NORMAL mg/dL (0.2-1.0)
[2017-11-01 16:27] LABS: HCG,QUALITATIVE URINE NEGATIVE (NEGATIVE)
[2017-11-01 16:37] LABS: ALB/GLOB RATIO 1.3 (1.0-2.1); ALT/SGPT 33 U/L (9-52); AST/SGOT 23 U/L (14-36); BLOOD UREA NITROGEN 12 mg/dL (7-17); CALCIUM 8.6 mg/dl (8.6-10.4); GFR AFRICAN-AMERICAN > 60; GFR NON-AFRICAN AMERICAN > 60
[2017-11-01 16:40] LABS: BARBITURATES, UR NEGATIVE (NEGATIVE); BENZODIAZEPINES, UR NEGATIVE (NEGATIVE); PHENCYCLIDINE, UR NEGATIVE (NEGATIVE)
[2017-11-01 16:42] LABS: OPIATES, UR POSITIVE (NEGATIVE)
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
[2017-11-01] MEDS ORDERED: Silver Sulfadiazine 1% Cream (20 gm) TOP STA (17:29)
[2017-11-01] MEDS ORDERED: Silver Sulfadiazine 1% Cream (20 gm) ONE (17:39)
--- NOTE | 2017-11-01 19:07 | PCM.BM ---
<Pia Colorado - Last Filed: 11/01/17 19:06> Treatment Plan Problems - Problems identified on initial assessmt Potential for opiate withdrawal Date Initiated: 11/01/17 Time Initiated: 19:06 Assessment reference: NA Status: Active Treatment assets and liabiliti Patient Assests: ADL independent, negotiates basic needs - Milieu Protocol Maintain good personal hygiene: daily Encourage regular showers, daily Remind patient to perform daily oral care, daily Assist patient to perform ADL's Conduct patient checks and document Observation sheet: Q15 minutes Maintain personal safety: every shift Educate patient to report safety concerns to staff, every shift Monitor environment for contraband/sharps Medication safety: Monitor for expected outcome, potential side effects: every shift, Assess barriers to learning: every shift, Assess readiness for medication education: every shift <Brii Blair - Last Filed: 11/02/17 13:59> - Diagnosis (1) Opioid dependence Status: Acute Interventions: 11/02/17 13:59 * Assess 7x/week regarding severity of withdrawal * Educate regarding risks, benefits, side effects and alternatives of medications * Use Motivational Interviewing for abstinence * Use CBT for relapse prevention * Medication management for withdrawal symptoms * Encourage medication assisted treatment * <Claudia Bender - Last Filed: 11/03/17 12:25> Family Contact Family involvement: Famliy/SO not involved - Goals for Treatment Patient goals for treatment: Complete detox and resume outpatient therapy and medication management at [facility]. Discharge/Continuing Care - Education Needs Education Needs: Patient Medication, Patient Diagnosis/Disease Process, Patient Coping Skills, Patient Anger Management skills, Patient Placement options, Patient Community resources - Discharge Discharge Criteria: Free of agitation, Normal sleep pattern, Ability to care for self, No longer exhibiting s/s of withdrawal, Reduction of target symptoms Discharge to:: Home - Treatment Team Participation Patient/Family/SO Statement: 11/03/17 12:25 "I wanna go back across the street but I want therapy too..." Discussed with Family/SO: No Was Patient/Family/SO present at Treatment Team Meeting: Yes
[2017-11-01] MEDS: Aluminum Hydroxide/Magnesium Hydroxide Susp (30 mL) PO PRN (19:55)
[2017-11-02] MEDS ORDERED: Buprenorphine Hydrochloride 2 mg SL ONE ×2 (13:06→14:30)
--- NOTE | 2017-11-02 13:20 | PCM.PSYCH ---
Initial Psychiatric Evaluation - Initial Psychiatric Evaluation Type of Admission: Voluntary Legal Status: Capacity Chief Complaint (in patient's own words): "I need help stopping oxycodone" History of Present Illness and Precipitating Events: The patient is seen, chart reviewed and case discussed. This is a 37-year-old female, she has 2 children aged 13 and 18 but both of them were taken from her custody longer go because of her substance use. She is on SSI for psychiatric reasons and lives alone. She [facility] to [facility] and sees Dr. Robb and is on seroquel 300 mg among many other medical meds. She says she is here to stop Oxycodone 30 mg TID, which she denies overusing, but at the same time her urine is positive for opiates, which indicates likely heroin use in this hospital. She used to use cocaine but stopped "long ago." Smokes 2 ppd and denies all other drug use. She reports withdrawal symptoms. She denies feeling suicidal, homicidal, AVH/delusions but she says she is somewhat depressed. Past psych history: She was hospitalized 1 time about 10 years ago. Dx'ed with bipolar disorder. She denies suicide attempts but she seems to be having mood swings and very irritable. She says her 2 years ago and that made her very depressed. Family psych history: There is alcoholism and bipolar disorder in the family Medical history: High blood pressure, hypothyroidism and herniated disc and gastritis. Current Medications: Active Medications Generic Name Dose Route Start Last Admin Trade Name Freq PRN Reason Stop Dose Admin Acetaminophen 650 mg 11/01/17 18:29 11/01/17 19:55 Tylenol 325mg Tab PO 650 mg Q6 PRN Administration Pain, moderate (4-7) Al Hydrox/Mg Hydrox/Simethicone 30 ml 11/01/17 18:31 11/01/17 19:55 Maalox 30 Ml PO 30 ml TID PRN Administration Indigestion / Heartburn Buprenorphine HCl 2 mg 11/02/17 13:06 Subutex SL 11/02/17 13:07 ONCE ONE Buprenorphine HCl 6 mg 11/02/17 14:30 Subutex SL 11/02/17 14:31 ONCE ONE Clonidine HCl 0.1 mg 11/01/17 18:31 Catapres PO Q8 PRN COWS Score More or Equal to 5 Hydrochlorothiazide 50 mg 11/02/17 13:15 Microzide PO DAILY [facility] Hydroxyzine HCl 50 mg 11/01/17 18:29 11/01/17 19:55 Atarax PO 50 mg Q6H PRN Administration Anxiety Ketorolac Tromethamine 10 mg 11/02/17 13:07 Toradol PO 11/07/17 13:08 Q8H PRN Pain, severe (8-10) Levothyroxine Sodium 200 mcg 11/03/17 06:30 Synthroid PO DAILY@0630 [facility] Loperamide HCl 2 mg 11/01/17 18:31 Imodium PO Q8 PRN Diarrhea Ondansetron HCl 4 mg 11/01/17 18:31 Zofran Tab PO Q8 PRN Nausea/Vomiting Quetiapine Fumarate 300 mg 11/02/17 22:00 Seroquel PO HS [facility] Topiramate 100 mg 11/02/17 14:00 Topamax PO TID [facility] Trazodone HCl 100 mg 11/01/17 18:29 11/01/17 21:38 Desyrel PO 100 mg HS PRN Administration Insomnia Valacyclovir HCl 1,000 mg 11/02/17 13:15 Valtrex PO DAILY [facility] Protocol Past Psychiatric History - Past Psychiatric History Previous Treatment History: Inpatient Pertinent Medical Hx (Current Medical&Sleep Prob, Allergies): Allergies Allergy/AdvReac Type Severity Reaction Status Date / Time shellfish derived Allergy Intermediate Verified 11/01/17 15:22 QUEtiapine [SEROquel] 300 mg PO HS 11/24/12 Clonazepam [Klonopin] 0.5 mg PO BID PRN 10/03/15 Topiramate [Topamax] 100 mg PO TID 10/03/15 Albuterol 0.083% [Albuterol Sulfate 3 Ml] 3 ml IH Q6 PRN 05/07/16 valACYclovir [Valtrex] 500 mg PO DAILY 03/28/17 Lidocaine 5% [Lidoderm] 1 each TP DAILY #10 patch 09/28/17 Naproxen [Naprosyn] 500 mg PO BID #20 tab 09/28/17 Oxycodone HCl [Oxycontin] 30 mg PO TID PRN 09/28/17 diaZEpam [Valium] 5 mg PO TID #12 tab 05/14/18 Fexofenadine HCl [JudyNf] 180 mg PO DAILY #30 tab 10/11/17 Review of Systems - Neurological Neurological: UNREMARKABLE - Psychiatric Psychiatric: Abnormal Sleep Pattern, Anxiety, Behavioral Changes, Difficulty Concentrating, Irritability, Mood Swings. absent: Hallucinations, Homicidal Ideation, Suicidal Ideation Mental Status Examination - Personal Presentation Personal Presentation: Looks stated age - Affect Affect: Constricted - Motor Activity Motor Activity: Calm - Reliability in Providing Information Reliability in Providing Information: Good - Speech Speech: Organized - Mood Mood: Anxious - Formal Thought Process Formal Thought Process: No Impairment - Cognitive Functions Orientation: Person, Place, Situation, Time Sensorium: Alert Attention/Concentration: Easily distracted Estimate of Intelligence: Average Judgement: Intact, as evidence by: Insight regarding need for hospitalization Memory: Recent intact, as evidence by: Ability to recall events of the day, Remote impaired as evidenced by: Inability to recall sig life events - Risk Risk: Withdrawal, Diminished functioning - Strength & Assets Inventory Strength & Assets Inventory: Cooperative - Limitations Limitations: Living alone DSM 5 DX - DSM 5 DSM 5 Diagnosis: Opioid withdrawal Opioid use d/o- severe Bipolar II disorder - unspecified JENNIFER Personality d/o - unspecified (cluster B) Pain syndrome - disc hernia HTN Hypothyroidism Gastritis - Recommended/Plan of Treatment Treatment Recommendations and Plan of Treatment: Taper with Subutex Her med-list is obtained from her pharmacy and reviewed with the pt: She agreed to take some (Acyclovir, HCTZ, topamax, synthroid...) and not take some (other antibiotics, Paxil, Abilify, Sulindac, Tizanide, etc.) and increase seroquel As far as pain goes, she will try tylenol for moderate, toradol for severe pain. As needed medications to be used as well All risks, benefits and alternatives of the meds discussed, and the pt agreed and understood. Attend groups and activities Supportive therapy and psychoeducation [place] for abstinence CBT for relapse prevention Encourage MAT Refer to rehab or IOP, and self-help groups Smoking cessation with [place] Nicotine patch if needed 34 min Projected ELOS: 5 days Prognosis: fair - Smoking Cessation Smoking Cessation Initiated: Yes
[2017-11-02] MEDS ORDERED: Vitamins A & D Oint UD Foilpak TOP PRN (17:27)
[2017-11-02] MEDS ORDERED: Magnesium Hydroxide Susp 30 ml UD PO ONE (21:14)
[2017-11-03] MEDS: Levothyroxine 200 MCG TAB PO SCH (06:16)
[2017-11-03] MEDS: Buprenorphine Hydrochloride 2 mg SL SCH (10:10)
--- NOTE | 2017-11-03 14:11 | PCM.PYCHPN ---
Psychiatric Progress Note - Psychiatric Progress Note Patient seen today, length of contact: 17 min Patient Chief Complaint: "I can't take too much seroquel" Problems Identified/Issues Discussed: The pt is seen, chart reviewed, case discussed with staff. Support and psychoeducation given, CBT and NC used briefly No new symptoms reported, improving slowly and needs more time No SEs from medications, risks discussed. After care discussed Medication Change: Yes (detox changes daily) Medical Record Reviewed: Yes Mental Status Examination - Cognitive Function Orientation: Person, Place, Situation, Time Memory: Intact Attention: WNL Concentration: Poor Association: WNL Fund of Knowledge: WNL - Mood Mood: Anxious - Affect Affect: Constricted - Speech Speech: Appropriate - Formal Thought Process Formal Thought Process: No Impairment - Suicidal Ideation Suicidal Ideation: No - Homicidal Ideation Homicidal Ideation: No Goal/Treatment Plan - Goal/Treatment Plan Need for Continued Stay: Discharge may exacerbated symptoms, Severe functional impairment Progress Toward Problem(s) and Goals/Treatment Plan: Taper with Subutex Her med-list is obtained from her pharmacy and reviewed with the pt: She agreed to take some (Acyclovir, HCTZ, topamax, synthroid...) and not take some (other antibiotics, Paxil, Abilify, Sulindac, Tizanide, etc.) and increase seroquel Seroquel was 100+300 but she only agreed to 50+300 for now As far as pain goes, she will try tylenol for moderate, toradol for severe pain. As needed medications to be used as well All risks, benefits and alternatives of the meds discussed, and the pt agreed and understood. Attend groups and activities Supportive therapy and psychoeducation [place] for abstinence CBT for relapse prevention Encourage MAT Refer to rehab or IOP, and self-help groups Smoking cessation with [place] Nicotine patch if needed Estimated Date of D/C: 11/05/17
[2017-11-03] MEDS ORDERED: Magnesium Hydroxide Susp 30 ml UD PO ONE (20:59)
[2017-11-04] MEDS: Levothyroxine 200 MCG TAB PO SCH (06:27)
[2017-11-04] MEDS: Buprenorphine Hydrochloride 2 mg SL SCH (10:42)
--- NOTE | 2017-11-04 11:39 | PCM.PYCHPN ---
Psychiatric Progress Note - Psychiatric Progress Note Patient seen today, length of contact: 16 min Patient Chief Complaint: "I am not well" Problems Identified/Issues Discussed: The pt is seen, chart reviewed, case discussed with staff. The pt is compliant with medications and reports no side-effects. Symptoms are improving but needs more time to stabilize. After care discussed, support and psychoeducation given. Medication Change: Yes (detox changes daily) Medical Record Reviewed: Yes Mental Status Examination - Cognitive Function Orientation: Person, Place, Situation, Time Memory: Intact Attention: WNL Concentration: Poor Association: WNL Fund of Knowledge: WNL - Mood Mood: Anxious - Affect Affect: Constricted - Speech Speech: Appropriate - Formal Thought Process Formal Thought Process: No Impairment - Suicidal Ideation Suicidal Ideation: No - Homicidal Ideation Homicidal Ideation: No Goal/Treatment Plan - Goal/Treatment Plan Need for Continued Stay: Discharge may exacerbated symptoms, Severe functional impairment Progress Toward Problem(s) and Goals/Treatment Plan: Taper with Subutex Her med-list is obtained from her pharmacy and reviewed with the pt: She agreed to take some (Acyclovir, HCTZ, topamax, synthroid...) and not take some (other antibiotics, Paxil, Abilify, Sulindac, Tizanide, etc.) and increase seroquel Seroquel was 100+300 but she only agreed to 50+300 for now As far as pain goes, she will try tylenol for moderate, toradol for severe pain. As needed medications to be used as well All risks, benefits and alternatives of the meds discussed, and the pt agreed and understood. Attend groups and activities Supportive therapy and psychoeducation [place] for abstinence CBT for relapse prevention Encourage MAT Refer to rehab or IOP, and self-help groups Smoking cessation with [place] Nicotine patch if needed Estimated Date of D/C: 11/05/17
--- NOTE | 2017-11-04 13:31 | PCM.PYCHPN ---
Psychiatric Progress Note - Psychiatric Progress Note Patient seen today, length of contact: 16 min Patient Chief Complaint: "I am not well" Problems Identified/Issues Discussed: The pt is seen, chart reviewed, case discussed with staff. The pt is compliant with medications and reports no side-effects. Symptoms are improving but needs more time to stabilize. After care discussed, support and psychoeducation given. Medication Change: Yes (detox changes daily) Medical Record Reviewed: Yes Mental Status Examination - Cognitive Function Orientation: Person, Place, Situation, Time Memory: Intact Attention: WNL Concentration: Poor Association: WNL Fund of Knowledge: WNL - Mood Mood: Anxious - Affect Affect: Constricted - Speech Speech: Appropriate - Formal Thought Process Formal Thought Process: No Impairment - Suicidal Ideation Suicidal Ideation: No - Homicidal Ideation Homicidal Ideation: No Goal/Treatment Plan - Goal/Treatment Plan Need for Continued Stay: Discharge may exacerbated symptoms, Severe functional impairment Progress Toward Problem(s) and Goals/Treatment Plan: Taper with Subutex Her med-list is obtained from her pharmacy and reviewed with the pt: She agreed to take some (Acyclovir, HCTZ, topamax, synthroid...) and not take some (other antibiotics, Paxil, Abilify, Sulindac, Tizanide, etc.) and increase seroquel Seroquel was 100+300 but she only agreed to 50+300 for now As far as pain goes, she will try tylenol for moderate, toradol for severe pain. As needed medications to be used as well All risks, benefits and alternatives of the meds discussed, and the pt agreed and understood. Attend groups and activities Supportive therapy and psychoeducation OR for abstinence CBT for relapse prevention Encourage MAT Refer to rehab or IOP, and self-help groups Smoking cessation with OR Nicotine patch if needed Estimated Date of D/C: 11/05/17
[2017-11-04] MEDS ORDERED: Mineral Oil Enema 135 ml RC ONE (15:21)
[2017-11-04] MEDS: Aluminum Hydroxide/Magnesium Hydroxide Susp (30 mL) PO PRN (16:28)
[2017-11-04 18:17] VITALS: O2SAT 99
[2017-11-05 06:05] VITALS: BP 101/67; RESP 20
[2017-11-05] MEDS: Levothyroxine 200 MCG TAB PO SCH (06:20)
--- NOTE | 2017-11-05 08:23 | PCM.PYCHDC ---
Mental Status Examination - Mental Status Examination Orientation: Person, Place, Situation, Time Memory: Intact Mood: Anxious Affect: Constricted Speech: Appropriate Attention: WNL Concentration: WNL Association: WNL Fund of Knowledge: WNL Formal Thought Process: No Impairment Suicidal Ideation: No Current Homicidal Ideation?: No Discharge Summary - Discharge Note Reason for Hospitalization: Opioid detox Consultations:: List each consultation separately and include: 1. Reason for request. 2. Findings. 3. Follow-up Summary of Hospital Course include:: 1. Description of specific treatment plan utilized for patients during their course of treatmen. 2. Summarize the time- course for resolution of acute symptoms and/or regressed behaviors. 3. Describe issues identified and worked on during hospitalization. 4. Describe medication utilized. 5. Describe medical problems identified and treated. 6. Reassessment of suicide risk Summary of Hospital Course: The patient is seen, chart reviewed and case discussed. On admission: This is a 37-year-old female, she has 2 children aged 13 and 18 but both of them were taken from her custody longer go because of her substance use. She is on SSI for psychiatric reasons and lives alone. She goes to [facility] and sees Dr. Robb and is on seroquel 300 mg among many other medical meds. She says she is here to stop Oxycodone 30 mg TID, which she denies overusing, but at the same time her urine is positive for opiates, which indicates likely heroin use in this hospital. She used to use cocaine but stopped "long ago." Smokes 2 ppd and denies all other drug use. She reports withdrawal symptoms. She denies feeling suicidal, homicidal, AVH/delusions but she says she is somewhat depressed. Past psych history: She was hospitalized 1 time about 10 years ago. Dx'ed with bipolar disorder. She denies suicide attempts but she seems to be having mood swings and very irritable. She says her 2 years ago and that made her very depressed. Family psych history: There is alcoholism and bipolar disorder in the family Medical history: High blood pressure, hypothyroidism and herniated disc and gastritis. Hospital course: The pt was admitted and started on treatment with psychotherapy, support, psychoeducation and medications. KS and CBT used. The pt attended groups and activities, as well as milieu therapy. All the risks and benefits of medications are discussed and the patient understood and agreed. The pt improved with the treatments provided. After care discussed with the patient. She will go to [facility] and [facility] She had GI issues (severe constipation and even got enema) and first few days she had attitude issues but she calmed down and was cooperative, yet somewhat isolative. - Final Diagnosis (DSM 5) Condition upon Discharge: STABLE DSM 5: Opioid withdrawal Opioid use d/o- severe Bipolar II disorder - unspecified JENNIFER Personality d/o - unspecified (cluster B) Pain syndrome - disc hernia HTN Hypothyroidism Gastritis Disposition: HOME/ ROUTINE Follow-up Treatment Plan: Continue below medications after discharge. Follow after care plan as discussed. Use relapse prevention skills Return to ER or call 911 if suicidal, homicidal or symptoms relapse. Stay away from stress, alcohol and drugs. See primary doctor regularly and get labs. See GI if no BM in a day - she passes gas. Prescriptions/Medication Reconciliation: hydroCHLOROthiazide [Microzide] 50 mg PO DAILY #30 tab hydrOXYzine HCl [Atarax] 50 mg PO DAILY #30 tab Levothyroxine [Synthroid] 200 mcg PO DAILY@0630 #30 tab QUEtiapine [Seroquel] 300 mg PO HS #30 tab Topiramate [Topamax] 100 mg PO TID #90 tab traZODone [Desyrel] 100 mg PO HS PRN #30 tab PRN Reason: Insomnia valACYclovir [Valtrex] 1,000 mg PO DAILY #30 tab - Smoking Cessation Smoking Cessation Medication prescribed: No - Antipsychotic Medications Pt discharged on 2 or more routine antipsychotic medications: No
[2017-11-05] MEDS: Buprenorphine Hydrochloride 2 mg SL SCH (09:36)
[2017-11-05 10:46] VITALS: PULSE 83; TEMP 97.6
== END 2017-11-05 09:45 | disposition home or self-care (01) | DRG 897 ==
LOC: C.ER 15:16 → C.7D 17:29
PROVIDERS: ADMIT Psychiatry & Neurology Psychiatry; ATTEND Psychiatry & Neurology Psychiatry
PROC: HZ2ZZZZ Detoxification Services for Substance Abuse Treatment (ICD-10-PCS; principal; 2017-11-01)
DX: F11.23 Opioid dependence with withdrawal (principal); F31.81 Bipolar II disorder; E03.9 Hypothyroidism, unspecified; I10 Essential (primary) hypertension; K29.70 Gastritis, unspecified, without bleeding; F60.9 Personality disorder, unspecified

== ENCOUNTER 2018-01-15 14:49 | Emergency (ER) | payer MEDICARE, MEDICAID ==
[2018-01-15 14:50] VITALS: BMI 31.9
[2018-01-15 15:01] VITALS: PULSE 87; RESP 18; O2SAT 100
[2018-01-15] MEDS ORDERED: Sodium Chloride 0.9% 500 ML IV STA (15:13)
[2018-01-15 15:29] LABS: BASO % 0.7 % (0.0-2.0); EOS # 0.2 K/uL (0.0-0.7); EOS % 1.8 % (0.0-4.0); HEMOGLOBIN 14.1 g/dL (11.0-16.0); LYMPH # 2.9 K/uL (1.0-4.3); MEAN CORPUSCULAR HEMOGLOBIN 34.1 pg (27.0-31.0); MEAN CORPUSCULAR HGB CONC 34.2 g/dL (33.0-37.0); MEAN PLATELET VOLUME 8.1 fL (7.2-11.7); MONO # 0.6 K/uL (0.0-0.8); MONO % 6.4 % (0.0-10.0); NEUT # 5.6 K/uL (1.8-7.0); NEUT % 60.1 % (50.0-75.0); NRBC % 0.1 % (0.0-2.0); RBC 4.13 Mil/uL (3.80-5.20); RED CELL DISTRIBUTION WIDTH 12.7 % (11.5-14.5); WHITE BLOOD COUNT 9.4 K/uL (4.8-10.8)
[2018-01-15 15:30] LABS: BASO # 0.1 K/uL (0.0-0.2)
[2018-01-15 15:33] LABS: MEAN CELL VOLUME 99.8 fL (81.0-99.0)
[2018-01-15 15:41] LABS: ALB/GLOB RATIO 1.2 (1.0-2.1); ALBUMIN 3.7 g/dL (3.5-5.0); ALT/SGPT 30 U/L (9-52); AST/SGOT 21 U/L (14-36); BLOOD UREA NITROGEN 15 mg/dL (7-17); CALCIUM 8.5 mg/dl (8.6-10.4); GFR NON-AFRICAN AMERICAN > 60; LIPASE 156 U/L (23-300)
[2018-01-15 15:46] LABS: HCG,QUALITATIVE URINE NEGATIVE (NEGATIVE)
[2018-01-15 15:47] LABS: SQUAMOUS EPITHIAL 8 /hpf (0-5); URINE BILIRUBIN NEGATIVE (NEGATIVE); URINE BLOOD 3+ (NEGATIVE); URINE CLARITY Hazy (Clear); URINE COLOR Yellow (YELLOW); URINE GLUCOSE (UA) NORMAL (Normal); URINE LEUKOCYTE ESTERASE NEG Leu/uL (Negative); URINE PROTEIN NEGATIVE (NEGATIVE); URINE UROBILINOGEN NORMAL mg/dL (0.2-1.0)
[2018-01-15 15:53] LABS: CK-MB 0.72 ng/mL (0.0-3.38)
--- NOTE | 2018-01-15 16:13 | RAD ---
Date of service: 01/15/2018 HISTORY: sob, LE edema COMPARISON: 10/11/2017 FINDINGS: LUNGS: No active pulmonary disease. PLEURA: No significant pleural effusion identified, no pneumothorax apparent. CARDIOVASCULAR: Normal. OSSEOUS STRUCTURES: No significant abnormalities. VISUALIZED UPPER ABDOMEN: Normal. OTHER FINDINGS: None. IMPRESSION: No active disease.
[2018-01-15 16:18] LABS: PROTHROMBIN TIME 11.1 SECONDS (9.7-12.2)
[2018-01-15 16:37] LABS: BENZODIAZEPINES, UR NEGATIVE (NEGATIVE); PHENCYCLIDINE, UR NEGATIVE (NEGATIVE)
[2018-01-15 16:38] LABS: BARBITURATES, UR POSITIVE (NEGATIVE); OPIATES, UR POSITIVE (NEGATIVE)
--- NOTE | 2018-01-15 16:44 | VASCLAB ---
Date of service: 01/15/2018 PROCEDURE: Lower Extremity Venous Duplex Exam. HISTORY: LE edema PRIORS: None. TECHNIQUE: Bilateral common femoral, femoral, popliteal and posterior tibial, peroneal and great saphenous veins were evaluated. Flow was assessed with color Doppler, compressibility, assessment of phasic flow and augmentation response. Report prepared by GUILLERMO FinkT FINDINGS: RIGHT: 1. Common Femoral Vein: 1.1. Compressibility - Fully compressible: Thrombus - None : Flow - Phasic: Augmentation -Normal: Reflux - . 2. Femoral Vein: 2.1. Compressibility - Fully compressible: Thrombus - None : Flow - Phasic: Augmentation -Normal: Reflux - . 3. Popliteal Vein: 3.1. Compressibility - Fully compressible: Thrombus - None : Flow - Phasic: Augmentation -Normal: Reflux - . 4. Posterior Tibial Vein: 4.1. Compressibility - Fully compressible: Thrombus - None: Flow - : Augmentation -: Reflux - . 5. Peroneal Vein: 5.1. Compressibility - Fully compressible: Thrombus - None: Flow - : Augmentation -: Reflux - . 6. Great Saphenous Vein: 6.1. Compressibility - Fully compressible: Thrombus - None: Flow - Phasic: Augmentation - Normal: Reflux - . LEFT: 1. Common Femoral Vein: 1.1. Compressibility - Fully compressible: Thrombus - None: Flow - Phasic: Augmentation -Normal: Reflux - . 2. Femoral Vein: 2.1. Compressibility - Fully compressible: Thrombus - None: Flow - Phasic: Augmentation -Normal: Reflux - . 3. Popliteal Vein: 3.1. Compressibility - Fully compressible: Thrombus - None : Flow - Phasic: Augmentation -Normal: Reflux - . 4. Posterior Tibial Vein: 4.1. Compressibility - Fully compressible: Thrombus - None: Flow -: Augmentation -: Reflux - . 5. Peroneal Vein: 5.1. Compressibility - Fully compressible: Thrombus - None: Flow - : Augmentation -: Reflux - . 6. Great Saphenous Vein: 6.1. Compressibility - Fully compressible: Thrombus - None: Flow - Phasic: Augmentation - Normal: Reflux - . OTHER FINDINGS: Right: None significant. Left: None significant. IMPRESSION: Right: No evidence of deep or superficial vein thrombosis of the right lower extremity. Left: No evidence of deep or superficial vein thrombosis of the left lower extremity.
--- NOTE | 2018-01-15 17:24 | C.PDOC ---
History Of Present Illness 37-year-old female, presents to the emergency department with multiple complaints. Patient states "my body is full of water" associated with swollen legs and pain. She notes associated shortness of breath, chest discomfort, headaches and abdominal pain. She denies any pain at this time. Time Seen by Provider: 01/15/18 14:54 Chief Complaint (Nursing): Lower Extremity Problem/Injury History Per: Patient History/Exam Limitations: no limitations Current Symptoms Are (Timing): Still Present Past Medical History Reviewed: Historical Data, Nursing Documentation, Vital Signs Vital Signs: Last Vital Signs Temp 98.2 F 01/15/18 17:00 Pulse 87 01/15/18 17:00 Resp 18 01/15/18 17:00 BP 110/70 01/15/18 17:00 Pulse Ox 100 01/15/18 18:07 - Medical History PMH: Anxiety, Asthma, Bipolar Disorder, COPD, Depression, Gastrointestinal Ulcer , Hypothyroidism, Migraine, Schizophrenia, Seizures, Sexually Transmitted Disease (Herpes) Denies: HTN (PT DENIES) - [facility] Procedures DETOXIFICATION SERVICES FOR SUBSTANCE ABUSE TREATMENT (11/01/17) INJECT/INFUSE ELECTROLYT (11/24/12) INJECT/INFUSE NEC (03/13/13) NEBULIZER THERAPY (11/30/12) Family History: States: No Known Family Hx - Social History Hx Tobacco Use: Yes Hx Alcohol Use: No Hx Substance Use: No - Immunization History Hx Tetanus Toxoid Vaccination: No Hx Influenza Vaccination: No Hx Pneumococcal Vaccination: No Review Of Systems Constitutional: Negative for: Fever, Chills Cardiovascular: Positive for: Chest Pain Respiratory: Positive for: Shortness of Breath Gastrointestinal: Positive for: Abdominal Pain Musculoskeletal: Positive for: Leg Pain Skin: Negative for: Rash Neurological: Negative for: Weakness, Numbness Physical Exam - Physical Exam Appears: Non-toxic, No Acute Distress, Other (Obese) Skin: Normal Color, Warm, Dry, No Rash Head: Atraumatic, Normacephalic Eye(s): bilateral: Normal Inspection Nose: Normal Oral Mucosa: Moist Lips: Normal Appearing Neck: Normal ROM Cardiovascular: Rhythm Regular, No Murmur Respiratory: Normal Breath Sounds, No Accessory Muscle Use Gastrointestinal/Abdominal: Soft, No Tenderness Extremity: No Tenderness, No Pedal Edema, No Deformity, No Swelling Neurological/Psych: Oriented x3, Normal Speech ED Course And Treatment - Laboratory Results Result Diagrams: 01/15/18 15:26 01/15/18 15:26 O2 Sat by Pulse Oximetry: 100 Pulse Ox Interpretation: Normal (RA) Medical Decision Making Medical Decision Making: Plan: * Bloodwork- unremarkable * Chest X-Ray- WNL * IVF, Zofran * Urine culture * Urinalysis - no acute abnormalities (pt is currently has her menstrual period) * US Doppler - negative for DVT * Reassess and Disposition - stable to be d/c home with PMD follow up Disposition - Disposition Referrals: Marni Hansen MD [Medical Doctor] - Disposition: HOME/ ROUTINE Disposition Time: 17:30 Condition: STABLE Additional Instructions: Follow up with your PMD within 1-2 days. Return to ED if feel worse. Use compression stockings every day. Instructions: Dependent Edema (DC) Forms: [facility] (Sami) - Clinical Impression Clinical Impression: Lower extremity edema - Scribe Statement The provider has reviewed the documentation as recorded by the Scribe (Alex Treviño) All medical record entries made by the Scribe were at my direction and personally dictated by me. I have reviewed the chart and agree that the record accurately reflects my personal performance of the history, physical exam, medical decision making, and the department course for this patient. I have also personally directed, reviewed, and agree with the discharge instructions and disposition.
[2018-01-15 17:47] VITALS: BP 110/70; TEMP 98.2
== END 2018-01-15 17:47 | disposition home or self-care (01) ==
LOC: C.ER 14:49
DX: R60.0 Localized edema (principal)
CPT/HCPCS: 71045; 80053; 81001; 82550; 82553; 83690; 84484; 84703; 85025; 85610; 85730; 87086; 93970; 96374; 99285; G0480; J2405; J7040

== ENCOUNTER 2018-03-04 16:09 | Emergency (ER) | payer MEDICARE, MEDICAID ==
[2018-03-04 16:19] VITALS: BMI 34.1
[2018-03-04 16:21] VITALS: BP 117/80; PULSE 76; RESP 18; TEMP 97.7; O2SAT 97
--- NOTE | 2018-03-04 16:57 | C.PDOC ---
History Of Present Illness 38 year old female with a past medical history of sciatica, chronic back pain, schizophrenia, bipolar disorder, anxiety, depression, and seizures presents to the emergency department complaining of right lower back pain x one month. Patient describes the pain as sharp, constant with radiation into the right buttock and down her right leg. Associated intermittent numbness and tingling in the right leg. Patient states her chronic pain medication including oxycodone does not provide relief, last dose this morning. Patient has an appointment with her pain management doctor tomorrow. Also complaining of intermittent right sided calf swelling and pain. No recent surgeries, trauma, travel, estrogen use, or other risk factors for DVT/PE. Denies IV drug use. Denies urinary symptoms, weakness, bowel or bladder incontinence, saddle anesthesia, shortness of breath, cough, chest pain, palpitations, syncope, rash, knee pain, hip pain, ankle pain, neck pain. Chief Complaint (Nursing): Back Pain History Per: Patient History/Exam Limitations: no limitations Onset/Duration Of Symptoms: Days Past Medical History Reviewed: Historical Data, Nursing Documentation, Vital Signs Vital Signs: Last Vital Signs Temp 97.7 F 03/04/18 16:19 Pulse 76 03/04/18 16:19 Resp 18 03/04/18 16:19 BP 117/80 03/04/18 16:19 Pulse Ox 97 03/04/18 16:19 - Medical History PMH: Anxiety, Asthma, Bipolar Disorder, COPD, Depression, Gastrointestinal Ulcer, Hypothyroidism, Migraine, Schizophrenia, Seizures, Sexually Transmitted Disease (Herpes) Denies: Diabetes, Hepatitis, HIV, HTN (PT DENIES) - [facility] Procedures DETOXIFICATION SERVICES FOR SUBSTANCE ABUSE TREATMENT (11/01/17) INJECT/INFUSE ELECTROLYT (11/24/12) INJECT/INFUSE NEC (03/13/13) NEBULIZER THERAPY (11/30/12) Family History: States: Unknown Family Hx - Social History Hx Tobacco Use: Yes Hx Alcohol Use: No Hx Substance Use: No - Immunization History Hx Tetanus Toxoid Vaccination: No Hx Influenza Vaccination: No Hx Pneumococcal Vaccination: No Review Of Systems Except As Marked, All Systems Reviewed And Found Negative. Constitutional: Negative for: Fever, Chills Eyes: Negative for: Vision Change ENT: Negative for: Nose Congestion, Throat Pain Cardiovascular: Negative for: Chest Pain, Palpitations Respiratory: Negative for: Cough, Shortness of Breath Gastrointestinal: Negative for: Nausea, Vomiting, Abdominal Pain, Diarrhea, Constipation, Melena, Hematochezia, Hematemesis, Rectal Pain Genitourinary: Negative for: Dysuria, Frequency, Incontinence, Hematuria, Vaginal Discharge, Vaginal Bleeding, Pelvic Pain Musculoskeletal: Positive for: Back Pain (right lumbar), Leg Pain (right leg). Negative for: Neck Pain, Shoulder Pain, Arm Pain, Hand Pain, Foot Pain Skin: Negative for: Rash, Lesions, Bruising Neurological: Positive for: Numbness (right leg, intermittent), Other (paresthesias, right leg, intermittent). Negative for: Weakness, Change in Speech, Altered Mental Status, Headache, Dizziness Psych: Negative for: Anxiety, Depression, Psychosis, Suicidal ideation, Withdrawal Physical Exam - Physical Exam Appears: Well, Non-toxic, No Acute Distress Skin: Normal Color, Warm, Dry Head: Atraumatic, Normacephalic Eye(s): bilateral: Normal Inspection, PERRL, EOMI Nose: Normal Oral Mucosa: Moist Tongue: Normal Appearing Lips: Normal Appearing Throat: Normal Neck: Normal, Normal ROM, No Midline Cervical Tenderness, No Paracervical Tenderness Cardiovascular: Rhythm Regular Respiratory: Normal Breath Sounds Gastrointestinal/Abdominal: Normal Exam Back: Normal Inspection, No CVA Tenderness, No Vertebral Tenderness, No Decreased ROM, No Muscle Spasm, Paraspinal Tenderness (mild, right lumbar), Straight Leg Raising (positive, right side) Extremity: Normal ROM, Calf Tenderness (mild right calf tenderness, no palpable cord), Capillary Refill (<2s), No Deformity, No Swelling Extremity: Bilateral: Atraumatic, Normal Color And Temperature, Normal ROM Neurological/Psych: Oriented x3, Normal Speech, Normal Cognition, Normal Cranial Nerves, Normal Motor, Normal Sensation Gait: Steady ED Course And Treatment O2 Sat by Pulse Oximetry: 97 Medical Decision Making Medical Decision Making: Initial Plan: --Venous Duplex right leg --Toradol 60mg IM No flexeril given secondary to seizure history and possible side effect of lowered seizure threshold. On re-eval, pt reports decreased pain after medication. Venous duplex right leg - negative for DVT Impression: Sciatica, Low Back Pain Plan: --Ibuprofen, heating pads, stretches for pain --followup pain management --followup ortho if pain persists --followup primary --return if sx worsen Disposition Counseled Patient/Family Regarding: Studies Performed, Diagnosis, Need For Followup, Smoking Cessation - Disposition Referrals: Bimal Esteves III, MD [Staff Provider] - Disposition: HOME/ ROUTINE Disposition Time: 17:40 Condition: IMPROVED Additional Instructions: Take ibuprofen 600mg every 6 hours with food as needed for pain Utilize provided stretching exercises Apply heating pads to painful area Followup with pain management doctor tomorrow as scheduled Followup with primary doctor within 2 days Followup with orthopedic doctor for persistent pain Return to ER if symptoms worsen Instructions: Sciatica Forms: [facility] (Khmer), Work Excuse - POA Present On Arrival: None - Clinical Impression Clinical Impression: Sciatica, Low back pain
--- NOTE | 2018-03-05 12:19 | VASCLAB ---
Date of service: 03/04/2018 PROCEDURE: Right Lower Extremity Venous Duplex Exam. HISTORY: right leg swelling, calf pain PRIORS: None. TECHNIQUE: Right common femoral, femoral, popliteal and posterior tibial, peroneal and great saphenous veins were evaluated. Flow was assessed with color Doppler, compressibility, assessment of phasic flow and augmentation response. Report prepared by YUE Ritchie, RVT FINDINGS: RIGHT: 1. Common Femoral Vein: 1.1. Compressibility - Fully compressible: Thrombus - None: Flow - Phasic: Augmentation -Normal: Reflux - None. 2. Femoral Vein: 2.1. Compressibility - Fully compressible: Thrombus - None: Flow - Phasic: Augmentation -Normal: Reflux - None. 3. Popliteal Vein: 3.1. Compressibility - Fully compressible: Thrombus - None: Flow - Phasic: Augmentation -Normal: Reflux - None. 4. Posterior Tibial Vein: 4.1. Compressibility - Fully compressible: Thrombus - None: Flow - Phasic: Augmentation -Normal: Reflux - None. 5. Peroneal Vein: 5.1. Compressibility - Fully compressible: Thrombus - None: Flow - Phasic: Augmentation -Normal: Reflux - None. 6. Great Saphenous Vein: 6.1. Compressibility - Fully compressible: Thrombus -None: Flow - Phasic: Augmentation - Normal: Reflux - None. OTHER FINDINGS: IMPRESSION: No evidence of deep or superficial vein thrombosis of the right lower extremity with excellent venous flow. Normal valve function noted of the right side. Normal venous flow noted in the left common femoral vein.
== END 2018-03-04 18:12 | disposition home or self-care (01) ==
LOC: C.ER 16:09
DX: M54.40 Lumbago with sciatica, unspecified side (principal)
CPT/HCPCS: 93971; 96372; 99284; J1885

== ENCOUNTER 2018-03-10 14:42 | Emergency (ER) | payer MEDICARE, MEDICAID ==
[2018-03-10 14:43] VITALS: BMI 34.1
[2018-03-10] MEDS ORDERED: Sodium Chloride 0.9% 1,000 ML IV ONE (15:15)
[2018-03-10 15:35] LABS: BASO # 0.1 K/uL (0.0-0.2); BASO % 0.7 % (0.0-2.0); EOS # 0.1 K/uL (0.0-0.7); EOS % 1.2 % (0.0-4.0); HEMOGLOBIN 15.2 g/dL (11.0-16.0); LYMPH # 3.3 K/uL (1.0-4.3); LYMPH % 27.1 % (20.0-40.0); MEAN CELL VOLUME 100.9 fL (81.0-99.0); MEAN CORPUSCULAR HEMOGLOBIN 34.6 pg (27.0-31.0); MEAN CORPUSCULAR HGB CONC 34.3 g/dL (33.0-37.0); MEAN PLATELET VOLUME 8.4 fL (7.2-11.7); MONO # 0.8 K/uL (0.0-0.8); MONO % 6.5 % (0.0-10.0); NEUT # 7.9 K/uL (1.8-7.0); NEUT % 64.5 % (50.0-75.0); RBC 4.4 Mil/uL (3.80-5.20); RED CELL DISTRIBUTION WIDTH 13.6 % (11.5-14.5); WHITE BLOOD COUNT 12.2 K/uL (4.8-10.8)
--- NOTE | 2018-03-10 15:37 | C.PDOC ---
History Of Present Illness 38 year old female with chronic neck and back pain with uncontrolled seizures presents to the ED for evaluation of abdominal discomfort described as burning for 1 day. Patient reports diarrhea, gas, vomiting, nausea, pain with PO intake, decreased PO intake, with the abdominal pain. She notes prior visit to PMD for evaluation and treatment of intermittent URIs and sore throat, given antibiotics. Also notes she cannot take her medication due to the abdominal pain. Admits she currently smokes. Denies fever and any other associated symptoms. Time Seen by Provider: 03/10/18 15:11 Chief Complaint (Nursing): Abdominal Pain History Per: Patient History/Exam Limitations: no limitations Onset/Duration Of Symptoms: Days Current Symptoms Are (Timing): Still Present Past Medical History Reviewed: Historical Data, Nursing Documentation, Vital Signs Vital Signs: Last Vital Signs Temp 97.4 F L 03/10/18 14:46 Pulse 91 H 03/10/18 14:46 Resp 18 03/10/18 14:46 BP 130/85 03/10/18 14:46 Pulse Ox 99 03/10/18 14:46 - Medical History PMH: Anxiety, Asthma, Bipolar Disorder, COPD, Depression, Gastritis, Gastrointestinal Ulcer, Hypothyroidism, Migraine, Schizophrenia, Seizures, Sexually Transmitted Disease (Herpes) Denies: Diabetes, Hepatitis, HIV, HTN (PT DENIES) - [facility] Procedures DETOXIFICATION SERVICES FOR SUBSTANCE ABUSE TREATMENT (11/01/17) INJECT/INFUSE ELECTROLYT (11/24/12) INJECT/INFUSE NEC (03/13/13) NEBULIZER THERAPY (11/30/12) Family History: States: Unknown Family Hx - Social History Hx Tobacco Use: Yes Hx Alcohol Use: No Hx Substance Use: No - Immunization History Hx Tetanus Toxoid Vaccination: No Hx Influenza Vaccination: No Hx Pneumococcal Vaccination: No Review Of Systems Constitutional: Positive for: Other ((+) pain with PO intake. (-) decreased PO intake. ). Negative for: Fever Gastrointestinal: Positive for: Nausea, Vomiting, Abdominal Pain, Diarrhea, Other (gas.) Physical Exam - Physical Exam Appears: Non-toxic, No Acute Distress Skin: Normal Color, Warm, Dry Head: Atraumatic, Normacephalic Eye(s): bilateral: Normal Inspection Throat: Erythema Neck: Normal ROM, Supple Cardiovascular: Rhythm Regular, No Murmur Respiratory: Normal Breath Sounds, No Rales, No Rhonchi, No Wheezing Gastrointestinal/Abdominal: Normal Exam, Soft, No Tenderness, Distention Neurological/Psych: Oriented x3, Normal Speech ED Course And Treatment - Laboratory Results Result Diagrams: 03/10/18 15:30 03/10/18 15:30 Lab Interpretation: Abnormal (WBC 12.2 but with normal differential, HCO3 19, Glucose 82, urine normal, Strep negative) O2 Sat by Pulse Oximetry: 99 (RA) Pulse Ox Interpretation: Normal Progress Note: 4:45 Patient states that she still feels "sick" after IV fluids and IV Zofran. She insists she is "too sick to go home". Reglan and Bentyl ordered and provided with PO fluids. Reevaluation Time: 18:00 Reassessment Condition: Improved (Feels much better after Reglan and Bentyl) Medical Decision Making Medical Decision Making: Plan: -Blood sent. Zofran. Urinalysis. Disposition Counseled Patient/Family Regarding: Studies Performed, Diagnosis, Need For Followup, Rx Given - Disposition Referrals: Kaylan Hansen MD [Staff Provider] - Disposition: HOME/ ROUTINE Disposition Time: 18:01 Condition: IMPROVED Prescriptions: Dicyclomine [Bentyl] 20 mg PO QID PRN #20 tab PRN Reason: Pain, Severe (8-10) Metoclopramide [Reglan] 1 tab PO TID PRN #25 tab PRN Reason: Nausea/Vomiting Instructions: Stomach Ache and Stomach Upset Forms: [facility] (Bahraini) - Clinical Impression Clinical Impression: Nausea, Vomiting, Diarrhea - Scribe Statement The provider has reviewed the documentation as recorded by the Scribe (Maryam Brock) Provider Attestation: All medical record entries made by the Scribe were at my direction and personally dictated by me. I have reviewed the chart and agree that the record a ccurately reflects my personal performance of the history, physical exam, medical decision making, and the department course for this patient. I have also personally directed, reviewed, and agree with the discharge instructions and disposition.
[2018-03-10 15:41] LABS: SQUAMOUS EPITHIAL 3 /hpf (0-5); URINE AMORPHOUS SEDIMENT RARE /ul (<OCC); URINE BILIRUBIN NEGATIVE (NEGATIVE); URINE BLOOD NEGATIVE (NEGATIVE); URINE CLARITY Hazy (Clear); URINE COLOR Yellow (YELLOW); URINE GLUCOSE (UA) NORMAL (Normal); URINE LEUKOCYTE ESTERASE NEG Leu/uL (Negative); URINE PROTEIN NEGATIVE (NEGATIVE); URINE UROBILINOGEN NORMAL mg/dL (0.2-1.0)
[2018-03-10 16:23] LABS: ALB/GLOB RATIO 1.4 (1.0-2.1); ALBUMIN 4.2 g/dL (3.5-5.0); ALT/SGPT 25 U/L (9-52); AST/SGOT 20 U/L (14-36); BLOOD UREA NITROGEN 14 mg/dL (7-17); GFR NON-AFRICAN AMERICAN > 60; LIPASE 135 U/L (23-300)
[2018-03-10 17:34] VITALS: BP 110/72; PULSE 78; TEMP 97.8
[2018-03-10 18:03] VITALS: O2SAT 99
[2018-03-10 18:07] VITALS: RESP 16
== END 2018-03-10 18:07 | disposition home or self-care (01) ==
LOC: C.ER 14:42
DX: R11.2 Nausea with vomiting, unspecified (principal); R19.7 Diarrhea, unspecified
CPT/HCPCS: 80053; 81001; 83690; 85025; 87070; 87430; 96361; 96372; 96374; 96375; 99285; J0500; J2405; J2765; J7030

== ENCOUNTER 2018-03-17 15:55 | Emergency (ER) | payer MEDICARE, MEDICAID ==
[2018-03-17 15:57] VITALS: BMI 34.6
[2018-03-17] MEDS ORDERED: Iohexol 240 (50 ml) PO STA (16:30)
[2018-03-17] MEDS ORDERED: Sodium Chloride 0.9% 1,000 ML IV ONE (16:30)
--- NOTE | 2018-03-17 16:46 | C.PDOC ---
History Of Present Illness 38 year old female with PMHx gastric ulcers, asthma, chronic back pain, bipoar, schizophrenia, and chronic back pain complains of right sided abdominal pain for the past 3 days. Pain is described as stabbing that feels like gas and worsens with eating. Also complains of reflux with eating, nausea, and constipation. Patient also complains of shortness of breath, cough, nasal congestion and generalized headache that began 3-4 days ago. State she saw her PMD, Dr. Hansen, 2 days ago who prescribed her an inhaler and antibiotics, with mild improvement of symptoms. Patient denies fever, vomiting, diarrhea. <Lisa Rocha P - Last Filed: 03/17/18 19:43> <Lisa Rocha P - Last Filed: 03/17/18 19:43> <Carissa Mccrary - Last Filed: 03/17/18 20:04> Time Seen by Provider: 03/17/18 16:08 Chief Complaint (Nursing): Abdominal Pain Past Medical History Vital Signs: Last Vital Signs Temp 98.4 F 03/17/18 15:57 Pulse 96 H 03/17/18 15:57 Resp 20 03/17/18 15:57 BP 114/82 03/17/18 15:57 Pulse Ox 100 03/17/18 15:57 - Medical History PMH: Anxiety, Asthma, Bipolar Disorder, COPD, Depression, Gastritis, Gastrointestinal Ulcer, Hypothyroidism, Migraine, Schizophrenia, Seizures, Sexually Transmitted Disease (Herpes) Denies: Diabetes, Hepatitis, HIV, HTN (PT DENIES) - [facility] Procedures DETOXIFICATION SERVICES FOR SUBSTANCE ABUSE TREATMENT (11/01/17) INJECT/INFUSE ELECTROLYT (11/24/12) INJECT/INFUSE NEC (03/13/13) NEBULIZER THERAPY (11/30/12) Family History: States: Unknown Family Hx - Social History Hx Tobacco Use: Yes (1ppd) Hx Alcohol Use: No Hx Substance Use: No - Immunization History Hx Tetanus Toxoid Vaccination: No Hx Influenza Vaccination: No Hx Pneumococcal Vaccination: No <Lisa Rocha P - Last Filed: 03/17/18 19:43> Vital Signs: Last Vital Signs Temp 98.5 F 03/17/18 19:28 Pulse 63 03/17/18 19:28 Resp 16 03/17/18 19:28 BP 119/77 03/17/18 19:28 Pulse Ox 100 03/17/18 19:45 - [facility] Procedures DETOXIFICATION SERVICES FOR SUBSTANCE ABUSE TREATMENT (11/01/17) INJECT/INFUSE ELECTROLYT (11/24/12) INJECT/INFUSE NEC (03/13/13) NEBULIZER THERAPY (11/30/12) <Carissa Mccrary - Last Filed: 03/17/18 20:04> Review Of Systems Constitutional: Positive for: Chills. Negative for: Fever ENT: Positive for: Nose Discharge Cardiovascular: Negative for: Chest Pain, Palpitations Respiratory: Positive for: Cough, Shortness of Breath. Negative for: Hemoptysis Gastrointestinal: Positive for: Nausea, Abdominal Pain, Constipation. Negative for: Vomiting, Diarrhea Genitourinary: Negative for: Dysuria, Frequency, Incontinence Neurological: Negative for: Confusion, Dizziness <Lisa Rocha P - Last Filed: 03/17/18 19:43> Physical Exam - Physical Exam Appears: Non-toxic, Other (uncomfortable with abdominal pain) Skin: Normal Color, Warm, Dry, No Diaphoretic Head: Atraumatic, Normacephalic Eye(s): bilateral: Normal Inspection, PERRL, EOMI Nose: Discharge (white ) Oral Mucosa: Moist Tongue: Normal Appearing Throat: Normal, No Erythema Neck: Normal, Normal ROM Cardiovascular: Rhythm Regular, No Rhythm Irregular, No Edema, No Friction Rub, No Murmur, No JVD Respiratory: No Accessory Muscle Use, No Rales, No Rhonchi, Wheezing (scant) Gastrointestinal/Abdominal: Bowel Sounds, Soft, Tenderness (epigastrium, RUQ, RLQ), No Guarding, No Rebound Extremity: Normal ROM, No Tenderness, No Pedal Edema, No Calf Tenderness Neurological/Psych: Oriented x3, Normal Speech, Normal Cranial Nerves (grossly) <Lisa Rocha P - Last Filed: 03/17/18 19:43> ED Course And Treatment - Laboratory Results Result Diagrams: 03/17/18 16:44 03/17/18 16:44 O2 Sat by Pulse Oximetry: 100 <Lisa Rocha P - Last Filed: 03/17/18 19:43> - Laboratory Results Result Diagrams: 03/17/18 16:44 03/17/18 16:44 Lab Interpretation: No Acute Changes (Improved compared to labs from last week.) Pulse Ox Interpretation: Normal - CT Scan/US CT abd/pelvis Other Rad Studies (CT/US): Read By Radiologist, Radiology Report Reviewed CT/US Interpretation: EXAM: CT Abdomen and Pelvis with IV contrast. CLINICAL HISTORY: PERIUMBILICAL PAIN. TECHNIQUE: Axial computed tomography images of the abdomen and pelvis with intravenous contrast. DLP 951. CONTRAST: With intravenous contrast. COMPARISON: Report of the prior CT dated 12/18/2017. FINDINGS: LUNG BASES: There is mild subsegmental atelectasis in the right lung base. No pleural effusions are seen. LIVER: Unremarkable. GALLBLADDER AND BILE DUCTS: The gallbladder appears within normal limits. No radioopaque gallstones are seen. No biliary ductal dilatation is evident. PANCREAS: Unremarkable. SPLEEN: Unremarkable. ADRENAL GLANDS: Unremarkable. KIDNEYS, URETERS, AND BLADDER: The kidneys appear within normal limits. There is no hydronephrosis or hydroureter. No urinary calculi are seen. STOMACH AND BOWEL: There is constipation. No evidence of bowel obstruction. No evidence suggesting enteritis or colitis. APPENDIX: No evidence of acute appendicitis on CT examination. PERITONEUM: No free fluid. No free air. LYMPH NODES: No lymp hadenopathy is evident. REPRODUCTIVE: Unremarkable as visualized. VASCULATURE: No evidence of abdominal aortic aneurysm. BONES: No aggressive appearing osseous lesion. No acute osseous pathology evident. IMPRESSION: 1. Constipation. 2. Otherwise unremarkable CT of the abdomen and pelvis. . Electronically signed on Mar 17, 2018 7:39:33 PM EDT by: Vasu Mena M.D. Certified by [employer] Trained MRI Subspecialist Reevaluation Time: 19:57 Reassessment Condition: Unchanged (Patient continues to have multiple complaints, all chronic. She has "allergies", abdominal pain with reflux and chronic musculoskeletal pain.) <Carissa Mccrary - Last Filed: 03/17/18 20:04> Medical Decision Making Medical Decision Making: Plan: -CBC: WNL -CMP: WNL -Lipase: WNL -UA: negative -BHCG: negative -CT Abd/pelvis IV and PO contrast: Constipation, otherwise unremarkable. (see full report) -CXR: No active disease <Lisa Rocha - Last Filed: 03/17/18 19:43> Disposition - Disposition Disposition Time: 19:43 <Lisa Rocha - Last Filed: 03/17/18 19:43> Counseled Patient/Family Regarding: Studies Performed, Diagnosis, Need For F ollowup <Carissa Mccrary - Last Filed: 03/17/18 20:04> - Disposition Disposition: HOME/ ROUTINE Condition: STABLE Instructions: Constipation, Adult (DC), Viral Upper Respiratory Infection, Adult (DC) Forms: [facility] [facility] (Indonesian) - Clinical Impression Clinical Impression: Constipation, URI (upper respiratory infection)
[2018-03-17] MEDS ORDERED: Iohexol 240 (50 ml) ONE (16:48)
[2018-03-17] MEDS ORDERED: Sodium Chloride 0.9% 1,000 ML ONE (16:48)
[2018-03-17 16:51] LABS: EOS # 0.2 K/uL (0.0-0.7); MEAN CORPUSCULAR HEMOGLOBIN 34.6 pg (27.0-31.0); MONO # 0.8 K/uL (0.0-0.8)
[2018-03-17 16:54] LABS: BASO % 0.4 % (0.0-2.0); EOS % 2.1 % (0.0-4.0); HEMOGLOBIN 14.5 g/dL (11.0-16.0); LYMPH # 2.6 K/uL (1.0-4.3); LYMPH % 29.1 % (20.0-40.0); MEAN CELL VOLUME 100.9 fL (81.0-99.0); MEAN CORPUSCULAR HGB CONC 34.3 g/dL (33.0-37.0); MEAN PLATELET VOLUME 8.3 fL (7.2-11.7); MONO % 9.2 % (0.0-10.0); NEUT # 5.3 K/uL (1.8-7.0); NEUT % 59.2 % (50.0-75.0); NRBC % 0.1 % (0.0-2.0); RBC 4.19 Mil/uL (3.80-5.20); RED CELL DISTRIBUTION WIDTH 13.5 % (11.5-14.5); WHITE BLOOD COUNT 8.9 K/uL (4.8-10.8)
[2018-03-17 16:57] LABS: HCG,QUALITATIVE URINE NEGATIVE (NEGATIVE)
[2018-03-17 16:58] LABS: SQUAMOUS EPITHIAL 4 /hpf (0-5); URINE BACTERIA RARE (<OCC); URINE BILIRUBIN NEGATIVE (NEGATIVE); URINE BLOOD NEGATIVE (NEGATIVE); URINE CLARITY Clear (Clear); URINE COLOR Yellow (YELLOW); URINE GLUCOSE (UA) NORMAL (Normal); URINE LEUKOCYTE ESTERASE NEG Leu/uL (Negative); URINE PROTEIN NEGATIVE (NEGATIVE); URINE UROBILINOGEN NORMAL mg/dL (0.2-1.0)
--- NOTE | 2018-03-17 17:04 | RAD ---
HISTORY: Abdominal pain COMPARISON: 01/15/2018. TECHNIQUE: Chest PA and lateral FINDINGS: LINES AND TUBES: None. LUNG AND PLEURA: The lungs are well inflated and clear. No pleural effusion or pneumothorax. HEART AND MEDIASTINUM: The heart is not enlarged. No aortic atherosclerotic calcification present. The hilar and mediastinal contours are within normal limits. SKELETAL STRUCTURES: The bony structures are within normal limits for the patient's age. VISUALIZED UPPER ABDOMEN: Normal. OTHER FINDINGS: None. IMPRESSION: No active pulmonary disease.
[2018-03-17 17:05] LABS: ALB/GLOB RATIO 1.3 (1.0-2.1); ALBUMIN 3.8 g/dL (3.5-5.0); ALT/SGPT 24 U/L (9-52); AST/SGOT 31 U/L (14-36); BLOOD UREA NITROGEN 16 mg/dL (7-17); CALCIUM 8.4 mg/dl (8.6-10.4); GFR NON-AFRICAN AMERICAN > 60; LIPASE 101 U/L (23-300)
[2018-03-17] MEDS ORDERED: DiphenhydrAMINE 50 mg/ml Inj ONE (17:11)
[2018-03-17] MEDS ORDERED: Iodixanol 320 MG/ML 100 ML BOTTLE IV ONE (18:06)
[2018-03-17 20:40] VITALS: RESP 18
[2018-03-17 20:59] VITALS: BP 113/74; PULSE 61; TEMP 98.3; O2SAT 100
--- NOTE | 2018-03-18 09:59 | CT ---
Date of service: 03/17/2018 PROCEDURE: CT Abdomen and Pelvis with contrast HISTORY: Abdominal pain. COMPARISON: 12/18/2017. TECHNIQUE: Intravenous contrast dose: 100 cc Visipaque 320. Radiation dose: Total exam DLP = 951.17 mGy-cm. This CT exam was performed using one or more of the following dose reduction techniques: Automated exposure control, adjustment of the mA and/or kV according to patient size, and/or use of iterative reconstruction technique. FINDINGS: LOWER THORAX: Unremarkable. LIVER: Unremarkable. No gross lesion or ductal dilatation. GALLBLADDER AND BILE DUCTS: Unremarkable. PANCREAS: Unremarkable. No gross lesion or ductal dilatation. SPLEEN: Unremarkable. ADRENALS: Unremarkable. No mass. KIDNEYS AND URETERS: Unremarkable. No hydronephrosis. No solid mass. VASCULATURE: Unremarkable. No aortic aneurysm. No atherosclerotic calcification or mural plaque present. BOWEL: Chronic constipation without mechanical obstruction or fecal impaction. APPENDIX: A normal appendix is visualized in it's entirety. PERITONEUM: Unremarkable. No free fluid. No free air. LYMPH NODES: Unremarkable. No enlarged lymph nodes. BLADDER: Distended urinary bladder without focal abnormalities. REPRODUCTIVE: Unremarkable. BONES: No acute fracture. OTHER FINDINGS: None. IMPRESSION: No acute findings related to/accounting for the clinical presentation. Additional benign and/or incidental findings described above. No significant interval change compared to the prior examination(s). Concordant results (preliminary interpretation) provided by [facility]. Procedure Completed: 18:51. Preliminary Report: Dictated and Authenticated: 19:39. Final Interpretation: 09:54. March 18, 2018. Full field digital CC and MLO views of bilateral breasts were obtained. Computer aided detection was utilized. amie
== END 2018-03-17 20:45 | disposition home or self-care (01) ==
LOC: C.ER 15:55
DX: K59.00 Constipation, unspecified (principal); J06.9 Acute upper respiratory infection, unspecified; Z87.891 Personal history of nicotine dependence
CPT/HCPCS: 71046; 74177; 80053; 81001; 83690; 84703; 85025; 96374; 96375; 99285; C9113; J2405; J7030; Q9966; Q9967

== ENCOUNTER 2018-05-30 17:14 | Emergency (ER) | payer MEDICARE, MEDICAID ==
[2018-05-30 17:14] VITALS: BMI 34.6
[2018-05-30 17:44] VITALS: RESP 18; O2SAT 100
--- NOTE | 2018-05-30 17:57 | C.PDOC ---
History Of Present Illness 38 year old female with PMHx gastric ulcers, asthma, chronic back pain, bipoar, schizophrenia, sz, and chronic back pain presents to the ED complaining of exacerbation of chronic pain and flu-like symptoms associated with nasal congestion, bodyaches, and rhinorrhea for one week. Patient has multiple prior ED visits for abdominal pain. Reports noncompliance with medications because she "hasn't followed up with doctor" but reports compliance with pain medications (oxycodone). Time Seen by Provider: 05/30/18 17:56 Chief Complaint (Nursing): Abdominal Pain History Per: Patient History/Exam Limitations: no limitations Onset/Duration Of Symptoms: Days Current Symptoms Are (Timing): Still Present Past Medical History Reviewed: Historical Data, Nursing Documentation, Vital Signs Vital Signs: Last Vital Signs Temp 97.6 F 05/30/18 17:40 Pulse 93 H 05/30/18 17:40 Resp 18 05/30/18 17:40 BP 119/87 05/30/18 17:40 Pulse Ox 100 05/30/18 17:40 - Medical History PMH: Anxiety, Asthma, Bipolar Disorder, COPD, Depression, Gastritis, Gastrointestinal Ulcer, Hypothyroidism, Migraine, Schizophrenia, Seizures, Sexually Transmitted Disease (Herpes) Denies: Diabetes, Hepatitis, HIV, HTN (PT DENIES) Surgical History: No Surg Hx - [facility] Procedures DETOXIFICATION SERVICES FOR SUBSTANCE ABUSE TREATMENT (11/01/17) INJECT/INFUSE ELECTROLYT (11/24/12) INJECT/INFUSE NEC (03/13/13) NEBULIZER THERAPY (11/30/12) Family History: States: No Known Family Hx - Social History Hx Tobacco Use: Yes (1ppd) Hx Alcohol Use: No Hx Substance Use: No - Immunization History Hx Tetanus Toxoid Vaccination: No Hx Influenza Vaccination: No Hx Pneumococcal Vaccination: No Review Of Systems Except As Marked, All Systems Reviewed And Found Negative. Constitutional: Positive for: Other (bodyaches). Negative for: Fever, Chills ENT: Positive for: Nose Discharge, Nose Congestion Cardiovascular: Negative for: Chest Pain Respiratory: Negative for: Cough, Shortness of Breath Gastrointestinal: Positive for: Abdominal Pain. Negative for: Nausea, Vomiting, Diarrhea Physical Exam - Physical Exam Appears: Non-toxic, No Acute Distress Skin: Warm, Dry, No Rash Head: Normacephalic Eye(s): bilateral: Normal Inspection Nose: Normal Oral Mucosa: Moist Neck: Supple Chest: Symmetrical Cardiovascular: Rhythm Regular Respiratory: No Rales, No Rhonchi, No Wheezing, Other (CTA B/L) Gastrointestinal/Abdominal: Soft, No Tenderness, No Distention, No Guarding, No Rebound Neurological/Psych: Oriented x3, Normal Speech Gait: Steady ED Course And Treatment - Laboratory Results Urine POC: Negative O2 Sat by Pulse Oximetry: 100 (RA) Pulse Ox Interpretation: Normal Progress - Data Reviewed Data Reviewed: Old records Medical Decision Making Medical Decision Making: Plan - Maalox 30mg PO - Pepcid 20mg PO - Toradol 60mg IM - Zofran 4mg PO - POC urine preg - UA Disposition Counseled Patient/Family Regarding: Diagnosis, Need For Followup - Disposition Referrals: YOUR,PMD [Other] Disposition: HOME/ ROUTINE Disposition Time: 18:52 Condition: IMPROVED Instructions: Chronic Pain (DC), Flu, Adult (DC) Forms: [facility] (Estonian) - Clinical Impression Clinical Impression: Chronic abdominal pain, URI (upper respiratory infection) - Scribe Statement The provider has reviewed the documentation as recorded by the Scribsathya Freeman All medical record entries made by the Scribe were at my direction and personally dictated by me. I have reviewed the chart and agree that the record accurately reflects my personal performance of the history, physical exam, medical decision making, and the department course for this patient. I have also personally directed, reviewed, and agree with the discharge instructions and disposition.
[2018-05-30] MEDS ORDERED: Alum-Mag Hydrox-Simethicone Susp (30 mL) PO STA (18:35)
[2018-05-30] MEDS ORDERED: Alum-Mag Hydrox-Simethicone Susp (30 mL) ONE (18:57)
[2018-05-30 19:04] VITALS: BP 110/66; PULSE 80; TEMP 98.3
== END 2018-05-30 19:09 | disposition home or self-care (01) ==
LOC: C.ER 17:14
DX: J06.9 Acute upper respiratory infection, unspecified (principal); R10.9 Unspecified abdominal pain; G89.29 Other chronic pain; J44.9 Chronic obstructive pulmonary disease, unspecified; F41.9 Anxiety disorder, unspecified; F17.210 Nicotine dependence, cigarettes, uncomplicated
CPT/HCPCS: 81025; 96372; 99285; J1885

== ENCOUNTER 2018-06-25 12:56 | Outpatient (CLI) | payer MEDICARE, MEDICAID | END 2018-06-25 12:57 | disposition home or self-care (01) | LOC: C.RADH 12:56 | DX: M19.90 Unspecified osteoarthritis, unspecified site (principal) ==

== ENCOUNTER 2018-08-03 14:05 | Emergency (ER) | payer MEDICARE, MEDICAID ==
[2018-08-03 14:05] VITALS: BMI 34.6
[2018-08-03 17:26] LABS: HCG,QUALITATIVE URINE NEGATIVE (NEGATIVE)
[2018-08-03 17:36] LABS: SQUAMOUS EPITHIAL 2 /hpf (0-5); URINE BACTERIA OCC (<OCC); URINE BILIRUBIN NEGATIVE (NEGATIVE); URINE BLOOD 1+ (NEGATIVE); URINE CLARITY Hazy (Clear); URINE COLOR Yellow (YELLOW); URINE GLUCOSE (UA) NORMAL (Normal); URINE HYALINE CAST 0-2 /lpf (0-2); URINE LEUKOCYTE ESTERASE TRACE Leu/uL (Negative); URINE PROTEIN NEGATIVE (NEGATIVE); URINE UROBILINOGEN NORMAL mg/dL (0.2-1.0)
[2018-08-03] MEDS ORDERED: Alum-Mag Hydrox-Simethicone Susp (30 mL) PO STA (17:45)
[2018-08-03] MEDS ORDERED: Belladonna-Phenobarbital PO STA (17:45)
[2018-08-03] MEDS ORDERED: Aluminum Hydroxide/Magnesium Hydroxide Susp (30 mL) ONE (18:10)
[2018-08-03] MEDS ORDERED: Belladonna-Phenobarbital ONE (18:10)
--- NOTE | 2018-08-03 18:30 | C.PDOC ---
History Of Present Illness 38 year old female presents to ED with complaint of lower abdominal pain for the past week. Patient is a poor historian. Patient describes the pain as constant. She also complains of nausea and states that she had a fever yesterday. She states that she tool Tylenol for the pain. Patient states that she takes Protonix and Reglan. She states that it hurts every time she eats. Patient denies vomiting, diarrhea, chills, and diaphoresis. Time Seen by Provider: 08/03/18 16:25 Chief Complaint (Nursing): Abdominal Pain History Per: Patient History/Exam Limitations: no limitations Onset/Duration Of Symptoms: Days (7), Persistent Current Symptoms Are (Timing): Still Present Location Of Pain/Discomfort: RLQ, LLQ Radiation Of Pain To:: None Quality Of Discomfort: "Pain" Associated Symptoms: Fever, Nausea, Loss Of Appetite. denies: Chills, Vomiting, Diarrhea Exacerbating Factors: None Alleviating Factors: None Past Medical History Reviewed: Historical Data, Nursing Documentation, Vital Signs Vital Signs: Last Vital Signs Temp 7.9 F L 08/03/18 15:13 Pulse 97 H 08/03/18 15:13 Resp 20 08/03/18 15:13 BP 123/79 08/03/18 15:13 Pulse Ox 100 08/03/18 15:13 - Medical History PMH: Anxiety, Asthma, Bipolar Disorder, COPD, Depression, Gastritis, Gastrointestinal Ulcer, Hypothyroidism, Migraine, Schizophrenia, Seizures, Sexually Transmitted Disease (Herpes) Denies: Diabetes, Hepatitis, HIV, HTN (PT DENIES) Surgical History: No Surg Hx - [facility] Procedures DETOXIFICATION SERVICES FOR SUBSTANCE ABUSE TREATMENT (11/01/17) INJECT/INFUSE ELECTROLYT (11/24/12) INJECT/INFUSE NEC (03/13/13) NEBULIZER THERAPY (11/30/12) Family History: States: Unknown Family Hx - Social History Hx Tobacco Use: Yes (1ppd) Hx Alcohol Use: No Hx Substance Use: No - Immunization History Hx Tetanus Toxoid Vaccination: No Hx Influenza Vaccination: No Hx Pneumococcal Vaccination: No Review Of Systems Constitutional: Positive for: Fever. Negative for: Chills, Sweats, Weakness Cardiovascular: Negative for: Chest Pain Respiratory: Negative for: Cough, Shortness of Breath Gastrointestinal: Positive for: Nausea, Abdominal Pain (lower abdomen). Negative for: Vomiting Genitourinary: Negative for: Dysuria, Frequency Neurological: Negative for: Weakness, Numbness, Dizziness Physical Exam - Physical Exam Appears: Well, Non-toxic, No Acute Distress Skin: Normal Color, Warm, Dry Head: Atraumatic, Normacephalic Eye(s): bilateral: Normal Inspection, PERRL, EOMI Neck: Normal ROM, Supple Chest: Symmetrical, No Deformity Cardiovascular: Rhythm Regular, No Murmur Respiratory: Normal Breath Sounds, No Accessory Muscle Use, No Rales, No Rhonchi, No Wheezing Gastrointestinal/Abdominal: Soft, Tenderness (mild epigastric area) Back: No CVA Tenderness Extremity: Capillary Refill (<2 seconds) Extremity: Bilateral: Atraumatic, Normal Color And Temperature, Normal ROM Pulses: Left Dorsalis Pedis: Normal, Right Dorsalis Pedis: Normal Neurological/Psych: Oriented x3, Normal Speech, Normal Cognition, Normal Motor, Normal Sensation ED Course And Treatment - Laboratory Results Lab Results: Urine Color Yellow (YELLOW) 08/03/18 17:16 Urine Clarity Hazy (Clear) 08/03/18 17:16 Urine pH 5.0 (5.0-8.0) 08/03/18 17:16 Ur Specific [place] 1.016 (1.003-1.030) 08/03/18 17:16 Urine Protein Negative mg/dL (NEGATIVE) 08/03/18 17:16 Urine Glucose (UA) Normal mg/dL (Normal) 08/03/18 17:16 Urine Ketones Negative mg/dL (NEGATIVE) 08/03/18 17:16 Urine Blood 1+ (NEGATIVE) H 08/03/18 17:16 Urine Nitrate Negative (NEGATIVE) 08/03/18 17:16 Urine Bilirubin Negative (NEGATIVE) 08/03/18 17:16 Urine Urobilinogen Normal mg/dL (0.2-1.0) 08/03/18 17:16 Ur Leukocyte Esterase Trace Balbir/uL (Negative) 08/03/18 17:16 Urine WBC (Auto) 1 /hpf (0-5) 08/03/18 17:16 Urine RBC (Auto) 4 /hpf (0-3) H 08/03/18 17:16 Ur Squamous Epith Cells 2 /hpf (0-5) 08/03/18 17:16 Urine Bacteria Occ (<OCC) H 08/03/18 17:16 Hyaline Casts 0-2 /lpf (0-2) 08/03/18 17:16 Urine HCG, Qual Negative (NEGATIVE) 08/03/18 17:16 Urine HCG, Qual Negative (NEGATIVE) 08/03/18 17:16 O2 Sat by Pulse Oximetry: 100 (in RA) Medical Decision Making Medical Decision Making: Impression: 38 year old female with lower abdominal pain. Plan: Maalox PO Lidocaine PO PO UA U-preg Patient to be reassessed after having GI cocktail. Update: Patient still feels nauseous. Zofran ordered for patient. Disposition Counseled Patient/Family Regarding: Diagnosis - Disposition Disposition Time: 19:11 Condition: STABLE Forms: [facility] ([place]irati) - POA Present On Arrival: None - Clinical Impression Clinical Impression: Epigastric pain - Scribe Statement The provider has reviewed the documentation as recorded by the Scribe (Brianne Quinonez) All medical record entries made by the Scribe were at my direction and personally dictated by me. I have reviewed the chart and agree that the record accurately reflects my personal performance of the history, physical exam, medical decision making, and the department course for this patient. I have also personally directed, reviewed, and agree with the discharge instructions and disposition. Physician Patient Turnover Patient Signed Over To: Grayson Petersen Handoff Comments: reassessment and dispo
[2018-08-03] MEDS ORDERED: Sodium Chloride 0.9% 1,000 ML IV ONE (19:29)
[2018-08-03 19:33] VITALS: RESP 18
[2018-08-03] MEDS ORDERED: Sodium Chloride 0.9% 1,000 ML ONE (19:41)
[2018-08-03 19:52] LABS: BASO # 0.1 K/uL (0.0-0.2); BASO % 0.6 % (0.0-2.0); EOS # 0.1 K/uL (0.0-0.7); EOS % 1.3 % (0.0-4.0); HEMOGLOBIN 14.7 g/dL (11.0-16.0); LYMPH # 3.2 K/uL (1.0-4.3); LYMPH % 30.6 % (20.0-40.0); MEAN CELL VOLUME 101.1 fL (81.0-99.0); MEAN CORPUSCULAR HGB CONC 33.6 g/dL (33.0-37.0); MEAN PLATELET VOLUME 8.2 fL (7.2-11.7); MONO # 0.7 K/uL (0.0-0.8); MONO % 6.5 % (0.0-10.0); NEUT # 6.4 K/uL (1.8-7.0); RBC 4.32 Mil/uL (3.80-5.20); RED CELL DISTRIBUTION WIDTH 12.8 % (11.5-14.5); WHITE BLOOD COUNT 10.4 K/uL (4.8-10.8)
[2018-08-03 20:06] LABS: ALB/GLOB RATIO 1.5 (1.0-2.1); ALT/SGPT 22 U/L (9-52); AST/SGOT 22 U/L (14-36); BLOOD UREA NITROGEN 13 mg/dL (7-17); GFR NON-AFRICAN AMERICAN > 60; LIPASE 153 U/L (23-300)
[2018-08-03 22:13] VITALS: BP 118/78; PULSE 71; TEMP 98.1; O2SAT 100
--- NOTE | 2018-08-04 11:05 | CT ---
PROCEDURE: CT Abdomen and Pelvis without Oral or IV contrast. HISTORY: abd pain COMPARISON: CT abdomen and pelvis with contrast performed 03/17/18 TECHNIQUE: Contiguous axial images of the abdomen and pelvis. No oral or IV contrast administered. Coronal and Sagittal reformats generated and reviewed. Radiation dose: Total exam DLP = 771.61 mGy-cm. This CT exam was performed using one or more of the following dose reduction techniques: Automated exposure control, adjustment of the mA and/or kV according to patient size, and/or use of iterative reconstruction technique. FINDINGS: There is limited evaluation of the solid organs without the administration of IV contrast. LOWER THORAX: No visible consolidation, pleural effusion, or pneumothorax. LIVER: Unremarkable unenhanced appearance. GALLBLADDER AND BILE DUCTS: Contracted gallbladder appears otherwise unremarkable. PANCREAS: Unremarkable unenhanced appearance. SPLEEN: Unremarkable unenhanced appearance. ADRENALS: Unremarkable unenhanced appearance. KIDNEYS AND URETERS: No hydronephrosis or obstructing renal calculus. BLADDER: The urinary bladder appears unremarkable. REPRODUCTIVE: Uterus is present. APPENDIX: The appendix appears within normal limits of caliber. No secondary signs of acute appendicitis. BOWEL: The stomach is nondistended. Lack of oral contrast limits evaluation for bowel pathology. The bowel loops appear within normal limits of caliber without evidence of intestinal obstruction. Moderate constipation. PERITONEUM: No significant free fluid. No definite free air. LYMPH NODES: Nonspecific sub cm retroperitoneal/periaortic lymph nodes. No bulky lymphadenopathy identified. VASCULATURE: No significant atherosclerotic calcifications. No aortic aneurysm. BONES: 7 mm sclerotic focus in the right iliac wing, possibly bone island. OTHER FINDINGS: Tiny fat containing umbilical hernia. IMPRESSION: Moderate constipation. Additional incidental findings as above. Preliminary impression was provided by [employer]
== END 2018-08-03 22:14 | disposition home or self-care (01) ==
LOC: C.ER 14:05
DX: K52.9 Noninfective gastroenteritis and colitis, unspecified (principal); R10.13 Epigastric pain
CPT/HCPCS: 74176; 80053; 81001; 83690; 84703; 85025; 96361; 96374; 99285; J7030

== ENCOUNTER 2018-08-11 14:36 | Outpatient (CLI) | payer MEDICARE, MEDICAID | END 2018-08-11 14:37 | disposition home or self-care (01) | LOC: C.VASC 14:36 ==